=== PATIENT | female | born 1990 | race Caucasian/White ===

== ENCOUNTER 2020-09-19 16:54 | Outpatient (RCR) | payer OTHER, SELFPAY ==
[2020-09-18 10:05] LABS: Hematocrit 33.9 % (37.0-47.0); Hemoglobin 11.2 g/dL (12.0-15.0)
[2020-09-18 10:23] LABS: Glucose 1 Hour PP 50gm Dose 120 mg/dL
[2020-09-18 11:05] LABS: HIV 1/2 Ab P24 Ag Result Negative (Negative)
[2020-09-18 11:20] LABS: Free T4 Free Thyroxine 1.07 ng/mL (0.78-2.19)
[2020-09-19] MEDS: RHO(D) IMMUNE GLOBULIN 300 MCG/2 ML SYRINGE IM (07:40)
== END 2020-09-19 16:55 | disposition home or self-care (01) ==
LOC: ANHLAB 16:54
PROVIDERS: PCP Internal Medicine; Visit Provider Obstetrics & Gynecology Gynecology
DX: Z29.13 Encounter for prophylactic Rho(D) immune globulin (principal); Z11.4 Encounter for screening for human immunodeficiency virus [HIV]; O36.0190 Maternal care for anti-D [Rh] antibodies, unspecified trimester, not applicable or unspecified; Z3A.00 Weeks of gestation of pregnancy not specified
CPT/HCPCS: 36415; 82306; 82947; 84439; 84443; 85014; 85018; 85461; 86703; 90384; 96372; G0432; J2790

== ENCOUNTER 2020-11-20 15:32 | Outpatient (RCR) | payer OTHER, SELFPAY ==
[2020-11-03 18:20] VITALS: BP 120/80
[2020-11-13 09:01] VITALS: BP 104/49; PULSE 89
[2020-11-17 09:34] VITALS: BP 100/71; PULSE 105
--- NOTE | ~2020-11-20 | US_ITS ---
EXAMINATION: US OB limited w BPP DATE: 11/03/2020 18:16 INDICATION: Decreased movement during third trimester TECHNIQUE: Real-time pelvic ultrasound was performed. The interpreting radiologist was not present fo r the study. COMPARISON: None. FINDINGS: There is a single living fetus in vertex presentation. The placenta is anterior. heart rate is 141 beats per minute (bpm). The amniotic fluid index is 18 cm which is normal Biophysical profile performed by the technologist: breathing (30 sec sustained breathing in 30 minutes): 2 out of 2 movement (3 gross body movements in 30 minutes): 2 out of 2 tone (one episode of tqrnnns-acvzbdrlr-voehruz limb movement): 2 out of 2 Amniotic fluid pocket (2 cm): 2 out of 2 Total score: 8 out of 8 IMPRESSION: 1. Single living fetus in vertex presentation. 2. Biophysical profile 8 out of 8. Reviewed, dictated and finalized at location A.
[2020-11-20 16:37] VITALS: BP 118/67; PULSE 95
== END 2020-12-07 08:13 | disposition home or self-care (01) ==
LOC: ANHOBOP 15:32
PROVIDERS: PCP Internal Medicine; Visit Provider Obstetrics & Gynecology Gynecology
DX: O36.8130 Decreased fetal movements, third trimester, not applicable or unspecified (principal); Z3A.34 34 weeks gestation of pregnancy; Z3A.35 35 weeks gestation of pregnancy; Z3A.36 36 weeks gestation of pregnancy; Z3A.37 37 weeks gestation of pregnancy
CPT/HCPCS: 59025; 76815; 76819

== ENCOUNTER 2020-11-29 08:25 | Outpatient (CLI) | payer OTHER, SELFPAY ==
--- NOTE | 2020-11-29 09:10 | PC.NURSE ---
Called Dr. Nelson with pt status. ROM plus negative, reactive tracing, and no contractions seen or felt per pt. October D/C home.
== END 2020-11-29 09:17 | disposition home or self-care (01) ==
LOC: ANHOBOP 09:14 → ANHLDR 09:15
PROVIDERS: PCP Internal Medicine; Visit Provider Obstetrics & Gynecology Gynecology
DX: O42.90 Premature rupture of membranes, unspecified as to length of time between rupture and onset of labor, unspecified weeks of gestation (principal); Z3A.00 Weeks of gestation of pregnancy not specified
CPT/HCPCS: 59025; 84112; 99199

== ENCOUNTER 2020-12-02 16:37 | Inpatient (IN) | payer OTHER, SELFPAY ==
[2020-12-02] VITALS (14 sets, daily range): BP systolic 113–131; BP diastolic 64–81; PULSE 82–101; RESP 16–18; TEMP 36.2–36.5; BMI 41.3
[2020-12-02 17:09] LABS: Basophils Percent Auto 0.2 % (0.2-1.2); Eosinophils Absolute Auto 0.8 K/mm3 (0-0.3); Eosinophils Percent Auto 7.6 % (0-4.4); Hematocrit 33.5 % (37.0-47.0); Hemoglobin 10.8 g/dL (12.0-15.0); Immature Granulocyte Absolute 0.04 K/mm3 (0.00-0.031); Immature Granulocyte Percent A 0.4 % (0-0.5); Lymphocytes Absolute Auto 2.11 K/mm3 (0.9-3.2); Lymphocytes Percent Auto 20.6 % (18.3-44.2); Mean Corpuscular HGB Conc 32.2 g/dl (32-36); Mean Corpuscular Hemoglobin 28.8 pg (26-34); Mean Corpuscular Volume 89.3 fl (80-100); Mean Platelet Volume 11.6 fl (7.4-10.4); Monocytes Absolute Auto 0.6 K/mm3 (0.1-0.6); Monocytes Percent Auto 5.5 % (2.6-8.5); Neutrophils Absolute Auto 6.7 K/mm3 (1.3-6.7); Neutrophils Percent Auto 65.7 % (45.5-73.1); Platelet Count Result 178 k/mm3 (150-375); Red Blood Count 3.75 M/mm3 (4.2-5.4); Red Cell Distribution Width 14.8 % (11.5-14.5); White Blood Count 10.2 K/mm3 (4.5-10.0)
[2020-12-02] MEDS: DINOPROSTONE 10 MG VAG INSERT VAGINAL (17:20)
--- NOTE | 2020-12-02 17:28 | LDADM ---
This patient, Vangie Vera, was admitted to Labor/Delivery/Recovery 107 on 12/02/20 at 16:37. Plans for labor, pain management and were discussed with patient. Patient/family oriented to hospital policies and general routines including ID bracelet, bed and alarms, visiting hours, pain management, procedures, bathroom and other care routines, personal items, smoking policy, room service/diet and guest tray routines, security routines, and visiting hours. Patient/Family are encouraged to report perceived risks to care and to ask questions if they do not understand what they are told or what they should do. See OBIX for further documentation.
[2020-12-03] VITALS (249 sets, daily range): BP systolic 74–138; BP diastolic 43–104; PULSE 62–214; RESP 16; TEMP 36–37.1; O2SAT 81–100
[2020-12-03] MEDS: LEVOTHYROXINE SODIUM 88 MCG TABLET PO (06:21)
[2020-12-03] MEDS: OXYTOCIN 30 UNITS/NS 500 ML 30 UNITS/500 ML BAG 6 UNITS IV CONT (06:41)
[2020-12-03] MEDS: LACTATED RINGERS 1,000 ML 125 ML IV CONT ×4 (06:41→20:27)
[2020-12-03 06:49] LABS: Rapid Plasma Reagin Non-Reactive (NonReactive)
--- NOTE | 2020-12-03 07:28 | WPDOBADMIT ---
Obstetrics - Admit Note Admission Note: record reviewed. No pertinent additions to the history and/or any subsequent changes in the physical findings that are not consistent with the expected course of the were found. Additions to the history and/or subsequent changes in the physical findings follow. Here for MIL. Cervadil last pm. Now 3 AROM with clear fluid. FHTS reactive. Continue with Pitocin
[2020-12-03] MEDS: fentaNYL CITRATE INJ (*CRX) 100 MCG/2 ML VIAL 50 MCG IV PUSH (08:18)
[2020-12-03] MEDS: fentaNYL CITRATE INJ (*CRX) 100 MCG/2 ML VIAL IV PUSH (09:38)
--- NOTE | 2020-12-03 10:17 | WPDANESEPP ---
Anes - Eval Pre Procedure Procedure: labor epidural Date/Time: 12/03/20 10:17 Surgeon: robert Pre Op Diagnosis: induction Patient Data Age: 30 Gender: F Height: 1.75 m Weight: 127.1 kg Last Vital Signs Temp 36.3 C L 12/03/20 08:00 Pulse 70 12/03/20 10:02 Resp 16 12/03/20 04:00 BP 108/70 12/03/20 10:02 Pulse Ox 98 12/03/20 10:14 Allergies Allergy/AdvReac Type Severity Reaction Status Date / Time No Known Allergies Allergy Verified 11/09/20 13:35 Home Medications Medication Instructions Recorded Confirmed Type ergocalciferol (vitamin D2) 1,250 mcg PO 2XW 11/09/20 12/02/20 History [Vitamin D2] levothyroxine 88 mcg PO DAILY 11/09/20 12/02/20 History mecobalamin (vitamin B12) 1,000 mcg PO DAILY 11/09/20 12/02/20 History prenat.vits,pedro,ynh-zlvb-olbsd 1 tablet PO DAILY 11/09/20 12/02/20 History [ #2] Laboratory Tests 12/02/20 12/02/20 12/02/20 17:02 17:02 17:02 WBC 10.2 K/mm3 H K/mm3 (4.5-10.0) RBC 3.75 M/mm3 L M/mm3 (4.2-5.4) Hgb 10.8 g/dL L g/dL (12.0-15.0) Hct 33.5 % L % (37.0-47.0) MCV 89.3 fl fl (80-100) MCH 28.8 pg pg (26-34) MCHC 32.2 g/dl g/dl (32-36) RDW 14.8 % H % (11.5-14.5) Plt Count 178 k/mm3 k/mm3 (150-375) MPV 11.6 fl H fl (7.4-10.4) Immature Gran % (Auto) 0.4 % % (0-0.5) Neut % (Auto) 65.7 % % (45.5-73.1) Lymph % (Auto) 20.6 % % (18.3-44.2) [place] % (Auto) 5.5 % % (2.6-8.5) Eos % (Auto) 7.6 % H % (0-4.4) Baso % (Auto) 0.2 % % (0.2-1.2) Lymph # (Auto) 2.11 K/mm3 K/mm3 (0.9-3.2) [place] # (Auto) 0.6 K/mm3 K/mm3 (0.1-0.6) Eos # (Auto) 0.8 K/mm3 H K/mm3 (0-0.3) Baso # (Auto) 0.0 K/mm3 K/mm3 (0.0-0.1) Abs Immat Gran (auto) 0.04 K/mm3 H K/mm3 (0.00-0.031) Absolute Neuts (auto) 6.7 K/mm3 K/mm3 (1.3-6.7) Absolute Nucleated RBC 0.0 K/mm3 K/mm3 (0.0-0.012) Nucleated RBC % 0.0 % % (0.0-0.2) RPR Non-reactive (NonReactive) Blood Type A Negative Antibody Screen Negative Patient hx anesthesia problems: none Family hx anesthesia problems: none PMFSH Family History Family History Mother Ovarian cancer S/P KALE (total abdominal hysterectomy) Father Hypertension Social History Social History Smoking status: Never smoker Second hand tobacco smoke exposure: No Substance use: never Spiritual care concerns: No Exam Day of Procedure 12/03/20 10:17
[2020-12-03] MEDS: ONDANSETRON INJ 4 MG/2 ML VIAL IV PUSH ×2 (12:27→22:51)
[2020-12-04] VITALS (178 sets, daily range): BP systolic 60–141; BP diastolic 29–118; PULSE 70–257; RESP 16–18; TEMP 36.1–37.2; O2SAT 96–100
[2020-12-04] MEDS: AMPICILLIN 2 GM/NS 100 ML 2 GM/100 ML BAG IVPB (01:40)
[2020-12-04] MEDS: AMPICILLIN 1 GM/NS 50 ML 1 GM/50 ML BAG IVPB (05:25)
--- NOTE | 2020-12-04 08:46 | P.OP_ITS ---
Procedure Note - Detailed Date of Procedure 12/04/20 Pre-op Diagnosis IUP 39 wks MIL Failure to progress Post-op Diagnosis same Procedure Performed primary low-transverse section Surgeon Ann Nelson MD Anesthesia epidural Findings female infant in the left occiput posterior position with a cord around the body and both legs weighing 7 lb 9 oz with Apgars of 8 [id number] 9 at 5; normal-appearing tubes ovaries and uterus Description of Procedure the patient was taken to the operating room and placed under anesthesia in the dorsal supine position with a leftward tilt. Once anesthesia was deemed adequate she was prepped and draped in the usual sterile fashion. Pfannenstiel skin incision was made need and carried down to the underlying layer of fascia. Fascia was nicked to the midline and extended laterally using Salazar scissors. Bleeding vessels in the subcutaneous tissue were cauterized with Bovie for hemostasis. The fascial incision was grasped anteriorly and dissected off using sharp and blunt dissection. The fascial incision was grasped posteriorly and dissected off using sharp and blunt dissection. The rectus muscles are in the midline and the peritoneum was tented with a Peon. The peritoneum was entered with Metzenbaum was. The incision is extended with blunt traction. The bladder blade is placed and the vesicouterine peritoneum grasped with a Peon. The incision was extended laterally and a bladder flap created digitally. The bladder blade is replaced. The lower uterine segment was incised in a transverse fashion with a scalpel. The incision is extended with blunt traction. The infant's head was brought up into the incision and delivered while the housing assistant property manager applied fundal pressure. The cord is detangled clamped and cut and the handed to the waiting OB nurse. the placenta is removed using manual traction. The Lenny 0 retractor is placed. The lower uterine segment is grasped with a ring forcep. The lower uterine segment was closed using 0 Monocryl in a running locked fashion and the same suture was used imbricate. Good hemostasis is noted. The gutters are irrigated the tubes and ovaries are inspected. The incision was again inspected and noted to be hemostatic. The Lenny O retractor was removed and the fascia closed using 0 Vicryl in a running fashion. Subcutaneous tissues are irrigated and made hemostatic using Bovie cautery. Skin incision was closed using 4 0 Vicryl in a subcuticular fashion. Sponge, needle, and instrument counts are correct per the OR staff. Patient received Ancef prior to skin incision. Estimated Blood Loss 750 Drains Yes (malhotra) Packing No Pathology none sent Complications No immediate complications Condition stable Disposition floor
--- NOTE | 2020-12-04 08:52 | PM.OBDSVD ---
DS: Admitting Diagnosis Admitting Diagnosis Admitting Diagnosis: Intrauterine at 39 weeks Medical induction of labor Failure to progress DS: Discharge Diagnosis Discharge Diagnosis (1) 39 weeks gestation of : Code(s): Z3A.39 - 39 weeks gestation of Status: Acute (2) Failure to progress in labor: Code(s): O62.2 - Other uterine inertia Status: Acute (3) delivery delivered: Code(s): O82 - Encounter for delivery without indication Status: Acute OB - DS: Summary OB Procedures : Ultrasound OB Procedures Intrapartum: low cervical, transverse OB Procedures: : None Peripartum Data Infant Delivery Method: Section complications: none Status at Discharge Functional status at discharge: independent ambulation Overall status at discharge: patient is progressing back to baseline Time Spent with Patient Time attestation: Total time spent providing and/or coordinating discharge services: Discharge Plan Discharge Attending physician on discharge: Ann Nelson Discharging Clinician: Ann Nelson Anticipated Discharge Date/Time: 12/07/20 08:53 Patient Disposition: Home, Self-Care Activity: may shower, may drive after 2 weeks and pelvic rest Diet: regular Wound Care Instructions: incision open to air Patient Instructions: Antibiotic Form Stand Alone Forms: General Discharge Information Follow-up/Referrals: Ann Nelson MD [Physician] - 1 Week (and 6 wk) Discharge Medications: New hydrocodone-acetaminophen 5-325 mg Tablet 1 tablet PO Q3H PRN (Reason: Moderate Pain (4-6)) Qty: 20 RF: 0 norethindrone (contraceptive) 0.35 mg tablet 0.35 mg PO DAILY Qty: 84 RF: 3 Continued levothyroxine 88 mcg Tablet 88 mcg PO DAILY RF: 0 ergocalciferol (vitamin D2) [Vitamin D2] 1,250 mcg (50,000 unit) Capsule 1,250 mcg PO 2XW RF: 0 #2 Tablet 1 tablet PO DAILY RF: 0 mecobalamin (vitamin B12) 1,000 mcg Tablet,Chewable 1,000 mcg PO DAILY RF: 0 Date of admission: 12/02/20 16:37 Primary Care Provider: RosannaRafael Admitting Provider: Ann Nelson Attending physician on admission: Ann Nelson Condition: Stable
[2020-12-04] MEDS: PHENYLEPHRINE 1,000 MCG/10 ML SYRINGE 100 MCG IV PUSH ×2 (08:57→09:07)
--- NOTE | 2020-12-04 08:57 | PM.IMHP ---
H&P: HPI History of Present Illness Date/Time: 12/04/20 08:57 Chief Complaint: failure to progress Narrative: the patient is a 30-year-old 1 at 39 weeks admitted for medical induction of labor. The patient had slow progress to 6.5cm and then had no further change in her cervix. Pelvic exam revealed the infant to the -2 station and the caput increasing suspect occiput posterior positioning. The patient's has been uncomplicated to this time labs A negative rubella immune RPR negative hepatitis-B surface antigen negative HIV negative group B strep negative. It is recommended to proceed with primary and the patient voices understanding and agrees to proceed. PMFSH Past Medical History Medical History (Updated 12/04/20 @ 08:59 by Ann Nelson MD) B12 deficiency Hypothyroid Surgical History Surgical History (Updated 12/04/20 @ 08:59 by Ann Nelson MD) H/O myringoplasty Family History Family History Mother Ovarian cancer S/P KALE (total abdominal hysterectomy) Father Hypertension Social History Social History Smoking status: Never smoker Second hand tobacco smoke exposure: No Substance use: never Spiritual care concerns: No Meds Home Medications and Allergies Home Medications Medication Instructions Recorded Confirmed Type ergocalciferol (vitamin D2) 1,250 mcg PO 2XW 11/09/20 12/02/20 History [Vitamin D2] levothyroxine 88 mcg PO DAILY 11/09/20 12/02/20 History mecobalamin (vitamin B12) 1,000 mcg PO DAILY 11/09/20 12/02/20 History prenat.vits,pedro,dzf-qjre-qnama 1 tablet PO DAILY 11/09/20 12/02/20 History [ #2] Allergies Allergy/AdvReac Type Severity Reaction Status Date / Time No Known Allergies Allergy Verified 11/09/20 13:35 Vital Signs Vital Signs - 24 hr 12/03/20 09:01 12/03/20 09:44 12/03/20 09:49 Temperature Pulse Rate 70 Respiratory Rate Blood Pressure 130/84 Pulse Oximetry 98 100 12/03/20 09:54 12/03/20 09:59 12/03/20 10:00 Temperature 97.1 F L Pulse Rate Respiratory Rate Blood Pressure Pulse Oximetry 99 98 12/03/20 10:02 12/03/20 10:04 12/03/20 10:09 Temperature Pulse Rate 70 Respiratory Rate Blood Pressure 108/70 Pulse Oximetry 98 98 12/03/20 10:14 12/03/20 10:19 12/03/20 10:24 Temperature Pulse Rate Respiratory Rate Blood Pressure Pulse Oximetry 98 99 100 12/03/20 10:29 12/03/20 10:32 12/03/20 10:34 Temperature Pulse Rate 63 Respiratory Rate Blood Pressure 124/71 Pulse Oximetry 100 100 12/03/20 10:39 12/03/20 10:44 12/03/20 10:49 Temperature Pulse Rate Respiratory Rate Blood Pressure Pulse Oximetry 100 100 100 12/03/20 10:54 12/03/20 10:59 12/03/20 11:02 Temperature Pulse Rate 69 Respiratory Rate Blood Pressure 104/58 L Pulse Oximetry 100 100 12/03/20 11:05 12/03/20 11:07 12/03/20 11:10 Temperature Pulse Rate 91 Respiratory Rate Blood Pressure 122/89 Pulse Oximetry 100 100 12/03/20 11:15 12/03/20 11:20 12/03/20 11:21 Temperature Pulse Rate 86 Respiratory Rate Blood Pressure 118/55 L Pulse Oximetry 100 100 12/03/20 11:23 12/03/20 11:25 12/03/20 11:27 Temperature Pulse Rate 85 78 73 Respiratory Rate Blood Pressure 115/74 121/68 112/59 L Pulse Oximetry 100 12/03/20 11:29 12/03/20 11:30 12/03/20 11:31 Temperature Pulse Rate 79 75 Respiratory Rate Blood Pressure 117/63 122/74 Pulse Oximetry 100 12/03/20 11:34 12/03/20 11:35 12/03/20 11:37 Temperature Pulse Rate 77 69 Respiratory Rate Blood Pressure 127/79 115/68 Pulse Oximetry 100 12/03/20 11:39 12/03/20 11:40 12/03/20 11:41 Temperature Pulse Rate 65 80 Respiratory Rate Blood Pressure 120/70 125/76 Pulse Oximetry 100 12/03/20 11:44 12/03/20 11:46 12/03/20
[2020-12-04] MEDS: LEVOTHYROXINE SODIUM 88 MCG TABLET PO (09:12)
[2020-12-04] MEDS: OXYTOCIN 30 UNITS/NS 500 ML 30 UNITS/500 ML BAG 125 UNITS IV CONT (09:47)
[2020-12-04] MEDS: DEXTROSE 5%/0.45% SOD CHL 1,000 ML 125 ML IV CONT (14:10)
--- NOTE | 2020-12-04 14:23 | PC.NURSE ---
Patient transferred to post room #277 via stretcher. Support person present. Oriented to unit, room, information board, rooming in, admission packet and security measures. Patient verbalizes understanding.
[2020-12-04] MEDS: KETOROLAC 30 MG/ML VIAL (*BKC) IV PUSH (19:37)
[2020-12-04] MEDS: HYDROcodone/acetaminophen (*CRX) 10-325 MG TABLET 1 TAB PO (19:38)
[2020-12-05] VITALS: BP 120/60; PULSE 72; RESP 16; TEMP 36.7; O2SAT 99
[2020-12-05] MEDS: IBUPROFEN 600 MG TABLET PO ×3 (03:33→17:07)
[2020-12-05] MEDS: HYDROcodone/acetaminophen (*CRX) 5-325 MG TABLET 1 TAB PO ×4 (03:33→22:17)
[2020-12-05 05:03] VITALS: BP 125/67; PULSE 84; RESP 18; TEMP 36.1; O2SAT 100
[2020-12-05 05:20] LABS: Basophils Percent Auto 0.2 % (0.2-1.2); Eosinophils Absolute Auto 0.6 K/mm3 (0-0.3); Eosinophils Percent Auto 4.3 % (0-4.4); Hematocrit 26.8 % (37.0-47.0); Hemoglobin 8.4 g/dL (12.0-15.0); Immature Granulocyte Absolute 0.07 K/mm3 (0.00-0.031); Immature Granulocyte Percent A 0.5 % (0-0.5); Lymphocytes Absolute Auto 2.23 K/mm3 (0.9-3.2); Lymphocytes Percent Auto 16.5 % (18.3-44.2); Mean Corpuscular HGB Conc 31.3 g/dl (32-36); Mean Corpuscular Hemoglobin 28.8 pg (26-34); Mean Corpuscular Volume 91.8 fl (80-100); Mean Platelet Volume 12.4 fl (7.4-10.4); Monocytes Absolute Auto 0.9 K/mm3 (0.1-0.6); Monocytes Percent Auto 6.8 % (2.6-8.5); Neutrophils Absolute Auto 9.7 K/mm3 (1.3-6.7); Neutrophils Percent Auto 71.7 % (45.5-73.1); Platelet Count Result 134 k/mm3 (150-375); Red Blood Count 2.92 M/mm3 (4.2-5.4); White Blood Count 13.6 K/mm3 (4.5-10.0)
[2020-12-05] MEDS: LEVOTHYROXINE SODIUM 88 MCG TABLET PO (07:20)
[2020-12-05 08:00] VITALS: BP 104/68; PULSE 73; RESP 20; TEMP 36.8; O2SAT 96
[2020-12-05] MEDS: POLYSACCHARIDE IRON COMPLEX 150 MG CAPSULE PO ×2 (08:36→17:06)
[2020-12-05] MEDS: DOCUSATE SODIUM 100 MG CAPSULE PO ×2 (08:36→17:06)
[2020-12-05] MEDS: ERGOCALCIFEROL 50,000 UNIT CAPSULE 50000 UNITS PO (08:36)
[2020-12-05] MEDS: MULTIVIT/MIN/PREN/FOL AC/IRON TABLET 1 TAB PO (08:37)
--- NOTE | 2020-12-05 10:46 | P.PNOB_ITS ---
OB - PN: Subj Subjective Date/time seen: 12/05/20 10:46 Patient comments: no complaints and pain well controlled baby status: doing well OB - PN: Obj Data Labs CBC & Chem 7: 12/05/20 03:32 Labs: Laboratory Results - last 24 hr 12/05/20 03:32 WBC 13.6 H RBC 2.92 L Hgb 8.4 L Hct 26.8 L MCV 91.8 MCH 28.8 MCHC 31.3 L RDW 15.0 H Plt Count 134 L MPV 12.4 H Immature Gran % (Auto) 0.5 Neut % (Auto) 71.7 Lymph % (Auto) 16.5 L [place] % (Auto) 6.8 Eos % (Auto) 4.3 Baso % (Auto) 0.2 Lymph # (Auto) 2.23 [place] # (Auto) 0.9 H Eos # (Auto) 0.6 H Baso # (Auto) 0.0 Abs Immat Gran (auto) 0.07 H Absolute Neuts (auto) 9.7 H Absolute Nucleated RBC 0.0 Nucleated RBC % 0.0 OB - PN A/P Plan day: 1 Plan: routine care Time Spent With Patient Time: Total time spent is greater than 50% in coordination of care (as documented) at patient's floor/unit and/or counseling patient: Exam Narrative: Exam Narrative: inc c/d/i : Bimanual exam- vagina & uterus: other (Uterus firm, nt @U)
--- NOTE | 2020-12-05 13:24 | WPDANLDPN2 ---
Anes-Prog Note L&D Date/Time: 12/05/20 13:24 Comfortable throughout: section Neuraxial method: epidural Epidural/Spinal procedure site: clean & non-tender Neuro status: Neuro function grossly intact. Cardiovascular status: normal Respiratory status: normal Airway patency: baseline Mental status: baseline Post-Op hydration status: normal Vital Signs: Last Vital Signs Temp 36.8 C 12/05/20 08:00 Pulse 73 12/05/20 08:00 Resp 20 12/05/20 08:00 BP 104/68 12/05/20 08:00 Pulse Ox 96 12/05/20 08:00 Pain score (VAS): 0 I/O: Intake & Output 12/04/20 12/05/20 12/05/20 23:59 07:59 15:59 Output Total 3600 Balance -3600 Post-procedural complaints: none Patient feedback: Patient satisfied with anesthetic care.
--- NOTE | 2020-12-05 13:24 | WPDANLDNPN2 ---
Anes-Prog Note L&D-Neuraxial Date/Time: 12/05/20 13:24 Neuraxial medications: epidural PF morphine Opiod-related complaints: none Patient feedback: Patient satisfied with post-operative pain management.
[2020-12-05 19:11] VITALS: BP 109/71; PULSE 79; RESP 18; TEMP 36.6; O2SAT 98
[2020-12-06] MEDS: IBUPROFEN 600 MG TABLET PO ×3 (05:26→23:03)
[2020-12-06] MEDS: HYDROcodone/acetaminophen (*CRX) 5-325 MG TABLET 1 TAB PO ×3 (05:26→23:03)
[2020-12-06 07:30] VITALS: BP 120/69; PULSE 78; RESP 22; TEMP 37; O2SAT 100
[2020-12-06 08:00] VITALS: BP 129/87; PULSE 72; RESP 18; TEMP 36.1
--- NOTE | 2020-12-06 09:37 | PM.OBPNVD ---
OB - PN: Subj Subjective Date/time seen: 12/06/20 09:37 Patient comments: no complaints and pain well controlled baby status: doing well OB - PN: Obj Data Labs CBC & Chem 7: 12/05/20 03:32 OB - PN A/P Plan day: 2 Plan: routine care Time Spent With Patient Time: Total time spent is greater than 50% in coordination of care (as documented) at patient's floor/unit and/or counseling patient: Exam Narrative: Exam Narrative: inc c/d/i : Bimanual exam- vagina & uterus: other (Uterus firm, nt @U)
[2020-12-06] MEDS: MULTIVIT/MIN/PREN/FOL AC/IRON TABLET 1 TAB PO (16:12)
[2020-12-06] MEDS: DOCUSATE SODIUM 100 MG CAPSULE PO (16:13)
[2020-12-06] MEDS: POLYSACCHARIDE IRON COMPLEX 150 MG CAPSULE PO (16:13)
[2020-12-06] MEDS: SIMETHICONE 80 MG TAB.CHEW PO (16:13)
[2020-12-06 16:32] VITALS: BP 114/71; PULSE 78; RESP 18; TEMP 37; O2SAT 100
[2020-12-06 19:07] VITALS: BP 137/65; PULSE 78; RESP 20; TEMP 36.8
[2020-12-07] MEDS: HYDROcodone/acetaminophen (*CRX) 5-325 MG TABLET 1 TAB PO (05:40)
[2020-12-07] MEDS: IBUPROFEN 600 MG TABLET PO (05:40)
--- NOTE | 2020-12-07 07:48 | PM.OBPNVD ---
OB - PN: Subj Subjective Date/time seen: 12/07/20 07:48 Patient comments: no complaints and pain well controlled baby status: doing well OB - PN: Obj Data Labs CBC & Chem 7: 12/05/20 03:32 OB - PN A/P Plan day: 3 Plan: routine care, discharge home and other (plans micronor) Time Spent With Patient Time: Total time spent is greater than 50% in coordination of care (as documented) at patient's floor/unit and/or counseling patient: Exam Narrative: Exam Narrative: inc c/d/i : Bimanual exam- vagina & uterus: other (Uterus firm, nt @U)
[2020-12-07] MEDS: SIMETHICONE 80 MG TAB.CHEW PO (07:53)
[2020-12-07] MEDS: DOCUSATE SODIUM 100 MG CAPSULE PO (07:53)
[2020-12-07] MEDS: POLYSACCHARIDE IRON COMPLEX 150 MG CAPSULE PO (07:54)
[2020-12-07] MEDS: LEVOTHYROXINE SODIUM 88 MCG TABLET PO (07:54)
[2020-12-07] MEDS: MULTIVIT/MIN/PREN/FOL AC/IRON TABLET 1 TAB PO (07:54)
--- NOTE | 2020-12-07 08:19 | PC.NURSE ---
Patient viewed the discharge video Mother & Baby Care, The First Two Weeks . Patient was given the opportunity and encouraged to ask questions. Patient verbalized understanding of information shared and has been given the mother/baby guide for home reference.
--- NOTE | 2020-12-07 08:19 | PC.NURSE ---
SElf care and infant care discharge instructions given including follow up visit date and time. Very pleasant and cooperative. No questions or concerns verbalized. FOB at side.
--- NOTE | 2020-12-07 09:45 | PC.NURSE ---
Addendum entered by Norma Sexton RN 12/07/20 15:26: 0845 Original Note: Consult with pt., mother reports she is putting to breast each feeding. Mother will initiate each feeding using using nipple shield and will make attempts to remove shield and complete feeding without, she then supplements EBM/formula and will then pump. Mother states she is now pumping 10-15 mls per session. Mother states shield was used due to flat nipples and infant was unable to latch and draw nipple in deeply. Reviewed application and cleaning of shield. Discussed nipple shield precautions and possible complications. Discussed the need for regular pumping until milk supply is fully established and infant is gaining weight. Patient verbalizes understanding. Reviewed weaning techniques of nipple shield. Mother is pumping without difficulties or discomfort and has a double electric spectra pump for home use. Discussed increasing supplementation as infant desires, with increased supplementation infant may go for 4 hours between feedings if having required output. If is exclusively infant should fed on demand or every three hours to satisfaction. Discussed signs when infant may be ready to decrease/ discontinue supplementation, suggested mother see ICP or LC for pre/post weight feeding evaluation before supplement is discontinued. Mother is able to independently latch with appropriate positioning/alignment. She denies any nipple discomfort, is feeding as required and waking infant to feed if needed. Infant is currently meeting outcomes for weight, output, jaundice and feeding frequencies. Mother states she feels confident to continue current feeding plan at home. Reviewed transition to breast milk, signs of adequate intake, and engorgement/relief. Instructed to call ICP if intake/output less than required. Reviewed regular medications mother is taking. Information provided per María Elena. Reviewed community resources on the [facility] website and in the Mom/Baby guide. Information on outpatient services provided. Mother has no further questions at this time.
[2020-12-09 07:56] VITALS: BP 109/69; PULSE 79; RESP 16; TEMP 37.1; O2SAT 99
== END 2020-12-07 10:50 | disposition home or self-care (01) | DRG 787 ==
LOC: ANHLDR 12-04 09:02 → ANHOB2 12-04 11:16
PROVIDERS: Admitting Provider Obstetrics & Gynecology Gynecology; PCP Internal Medicine; Visit Provider Obstetrics & Gynecology Gynecology
PROC: 10D00Z1 Extraction of Products of Conception, Low, Open Approach (ICD-10-PCS; CPT 59514; principal; 2020-12-04 08:15)
DX: O62.2 Other uterine inertia (principal); O41.03X0 Oligohydramnios, third trimester, not applicable or unspecified; O69.2XX0 Labor and delivery complicated by other cord entanglement, with compression, not applicable or unspecified; O99.284 Endocrine, nutritional and metabolic diseases complicating childbirth; E03.9 Hypothyroidism, unspecified; Z3A.39 39 weeks gestation of pregnancy; Z37.0 Single live birth
CPT/HCPCS: 36415; 59025; 84112; 85025; 86592; 86850; 86900; 86901; 99199; A9270; J0131; J0290; J1885; J2274; J2370; J2405; J2590; J2795; J3010; J7120

== ENCOUNTER 2022-02-17 10:42 | Emergency (ER) | payer OTHER, SELFPAY ==
--- NOTE | 2022-02-17 10:47 | ED.NECK ---
HPI - Neck Pain/Injury General Chief Complaint: Neck Pain/Injury Stated Complaint: HEAD AND NECK PAIN Time Seen by Provider: 02/17/22 10:42 Source: patient Mode of arrival: ambulatory Limitations: no limitations History of Present Illness HPI Narrative: Ms. Luis is a 31-year-old female patient presenting to the clinic today with complaints of neck pain/posterior occipital head pain. She reports symptoms began yesterday when she woke up. She denies known injury. Pain is nonradiating. Rates pain 4 out of 10-states that it is tender when touched and aches. She denies any headache, fever, or dizziness. Related Data Home Medications Medication Instructions Recorded Confirmed levothyroxine 88 mcg tablet 88 mcg PO DAILY 11/09/20 02/17/22 mecobalamin (vitamin B12) 1,000 1,000 mcg PO DAILY 11/09/20 02/17/22 mcg chewable tablet Allergies Allergy/AdvReac Type Severity Reaction Status Date / Time No Known Allergies Allergy Verified 02/17/22 10:51 Review of Systems Review of Systems: Pertinent positives per HPI. Patient denies any fever, chills, rash, visual changes, dizziness, cough, runny nose, sore throat, shortness of breath, chest pain, palpitations, nausea, vomiting, diarrhea, constipation, abdominal pain, or any urinary issues. PMFSH Past Medical History Medical History B12 deficiency Hypothyroid Surgical History Surgical History H/O myringoplasty Family History Family History Mother Ovarian cancer S/P KALE (total abdominal hysterectomy) Father Hypertension Social History Social History Smoking status: Never smoker Second hand tobacco smoke exposure: No Substance use: never Spiritual care concerns: No Comments At the time of my signature, I reviewed and agree with the nursing past medical, surgical, social, and family history. There is no relevant family history pertinent to the patient complaint. Exam Narrative: General: Well-developed, well nourished, in no apparent distress Head: Normocephalic, atraumatic. Cardio: Regular rate and rhythm, s1 and s2 normal, no murmur appreciated. Resp: Clear to auscultation bilaterally, no rhonchi, rales, wheezing or rubs. Musculoskeletal: No deformity, tender to palpation over the right posterior occipital head/neck, grossly normal range of motion with mild discomfort, muscle strength strong and equal, peripheral pulse strong, no edema, no cyanosis, normal gait and station Course Course Emergency Course: Portions of this record may have been created with voice recognition software. Level of Care: Express Care Visit Vital Signs Vital signs: Vital signs reviewed MDM - Neck Pain/Injury MDM Narrative Medical decision making narrative: At the time of visit patient was resting comfortably on the exam table. Discharge Plan Discharge Clinical Impression: Cervical muscle strain Patient Disposition: Home, Self-Care Condition: Stable Instructions: Antibiotic Form, Cervical Sprain (ED) Additional Instructions: Take naproxen and cyclobenzaprine as prescribed. Cyclobenzaprine sedation precautions reviewed with patient May apply ice pack or heating pad to the affected area May apply blue emu, lidocaine, or Aspercreme to the affected area- do not apply cream and immediately apply heat or ice as this can cause a burn Follow up with your PCP in 1 week if symptoms persist or sooner if they worsen. Go to the Emergency Room if you develop weakness in your extremities, worsening of pain, headache, or fever. Prescriptions: New cyclobenzaprine 10 mg tablet 10 mg PO Q8H PRN (Reason: muscle spasm) 7 Days Qty: 21 0RF naproxen 500 mg tablet 500 mg PO BID 7 Days Qty: 14 0RF
[2022-02-17 10:51] VITALS: BP 125/88; PULSE 76; RESP 18; TEMP 37.2; O2SAT 99
[2022-02-17 10:52] VITALS: BP 125/88; PULSE 76; RESP 18; TEMP 37.2; O2SAT 99
== END 2022-02-17 11:20 | disposition home or self-care (01) ==
PROVIDERS: Emergency Provider Nurse Practitioner Family; PCP Internal Medicine
DX: S16.1XXA Strain of muscle, fascia and tendon at neck level, initial encounter (principal); X58.XXXA Exposure to other specified factors, initial encounter; E03.9 Hypothyroidism, unspecified; E53.8 Deficiency of other specified B group vitamins
CPT/HCPCS: 99213; G0463

== ENCOUNTER 2023-01-12 09:37 | Outpatient (CLI) | payer OTHER, SELFPAY ==
--- NOTE | ~2023-01-12 | US_ITS ---
US OB <=14 wk fetus w TV DATE: 01/12/2023 11:23 INDICATION: First trimester vaginal spotting TECHNIQUE: Real-time imaging and Doppler analysis COMPARISON: None FINDINGS: The uterus measures approximately 15.6 cm height, 5.7 cm AP and 9.5 cm transverse dimension . Dichorionic diamniotic twin intrauterine gestation is demonstrated. Right ovary 1.6 x 1.2 x 1.78 cm, with vascular flow. Left ovary 4.5 x 3.8 x 3.3 cm with vascular flow demonstrated. There is an approximately 3 x 3.7 cm l eft ovarian cyst. No abnormal free fluid is noted. Twin a is situated on the right, with heart rate of 1 65 bpm Morales-Sanchez-rump length of 1.51 cm, consistent with estimated gestational age of 7 weeks 6 days +/- 5 days and MONIQUE of 08/25/2023, compared to 08/24/2023 by LMP. Twin B situated on the left, with heart rate of 157 bpm crown-rump length of 1.83 cm, consisten t with 8 weeks 2 days +/- 5 days estimated gestational age and MONIQUE of 08/22/2023. No subchorionic hematoma is evident. IMPRESSION: Live dichorionic diamniotic intrauterine gestation 3.7 x 3 cm left ovarian cyst Reviewed, dictated and finalized at [facility]. Reviewed, dictated and finalized at location [facility].
== END 2023-01-12 09:38 | disposition home or self-care (01) ==
PROVIDERS: PCP Internal Medicine; Visit Provider Obstetrics & Gynecology Gynecology
DX: O26.851 Spotting complicating pregnancy, first trimester (principal); O30.041 Twin pregnancy, dichorionic/diamniotic, first trimester; Z3A.00 Weeks of gestation of pregnancy not specified; N83.202 Unspecified ovarian cyst, left side
CPT/HCPCS: 36415; 76801; 76817; 85461; 86850; 86900; 86901

== ENCOUNTER 2023-01-14 13:50 | Outpatient (RCR) | payer OTHER, SELFPAY ==
[2023-01-14] MEDS: RHO(D) IMMUNE GLOBULIN 300 MCG/2 ML SYRINGE IM (09:00)
== END 2023-01-14 14:00 | disposition home or self-care (01) ==
LOC: ANHLAB 13:50
PROVIDERS: PCP Internal Medicine; Visit Provider Obstetrics & Gynecology Gynecology
DX: O36.0110 Maternal care for anti-D [Rh] antibodies, first trimester, not applicable or unspecified (principal); O26.851 Spotting complicating pregnancy, first trimester; Z3A.00 Weeks of gestation of pregnancy not specified
CPT/HCPCS: 36415; 85461; 86850; 86900; 86901; 90384; 96372; J2790

== ENCOUNTER 2023-05-31 20:33 | Observation (INO) | payer OTHER, SELFPAY ==
[2023-05-31 21:18] VITALS: BP 116/65; PULSE 79
[2023-05-31 21:31] VITALS: BP 112/59; PULSE 87
[2023-05-31 21:37] VITALS: BMI 44.1
--- NOTE | 2023-05-31 21:37 | OBADM ---
This patient, Vangie Luis, admitted to the OB room [facility] Post [facility] for observation. Patient/family oriented to hospital policies and general routines including ID bracelet, bed and alarms, visiting hours, pain management, procedures, bathroom and other care routines, personal items, smoking policy, room service/diet, and visiting hours. Patient/Family are encouraged to report perceived risks to care and to ask questions if they do not understand what they are told or what they should do.
--- NOTE | 2023-05-31 21:44 | PC.NURSE ---
Patient fell tonight down one stair and fell on her hands and knees. Patient did not hit belly and is not experiencing any cramping or vaginal bleeding. Patient is feeling normal movement of babies.
--- NOTE | 2023-05-31 21:45 | PC.NURSE ---
Talked to Berlin Orellana CNM at 2134 reported on maternal and status and discharge orders recieved at this time.
--- NOTE | 2023-06-05 07:42 | PM.OBTRLD ---
OB - Triage/Final Diagnosis Visit Information Date of evaluation: 06/01/23 Comments/Additional reasons for admission: I have assessed the risk for this patient, Vangie Jose Luis, and determined that she would benefit from observation care.
--- NOTE | 2023-06-05 07:43 | PM.OBTRLD ---
OB - Triage/Final Diagnosis Visit Information Date of evaluation: 05/31/23 Reason for evaluation: other (s/p fall) Comments/Additional reasons for admission: I have assessed the risk for this patient, Vangie Luis, and determined that she would benefit from observation care. Evaluation Comments: Per RN, tracing reactive x2. No bleeding, ctx, loss of fluid or other complaints.
== END 2023-05-31 22:00 | disposition home or self-care (01) ==
PROVIDERS: Admitting Provider Obstetrics & Gynecology Gynecology; PCP Internal Medicine; Visit Provider Obstetrics & Gynecology Gynecology
DX: Z04.3 Encounter for examination and observation following other accident (principal)
CPT/HCPCS: 59025; G0378; G0379

== ENCOUNTER 2023-06-06 09:37 | Outpatient (RCR) | payer OTHER, SELFPAY ==
[2023-06-05 11:06] LABS: Hematocrit 34.8 % (37.0-47.0); Hemoglobin 10.8 g/dL (12.0-15.0)
[2023-06-05 11:26] LABS: Glucose 1 Hour PP 50gm Dose 92 mg/dL
[2023-06-05 11:56] LABS: Free T4 Free Thyroxine 1.24 ng/mL (0.78-2.19); Vitamin D 25 Hydroxy 59.5 ng/mL
[2023-06-05 12:08] LABS: HIV 1/2 Ab P24 Ag Result Negative (Negative)
[2023-06-06] MEDS: RHO(D) IMMUNE GLOBULIN 300 MCG/2 ML SYRINGE IM (09:44)
== END 2023-09-03 23:59 | disposition home or self-care (01) ==
LOC: ANHLAB 09:37
PROVIDERS: PCP Internal Medicine; Visit Provider Advanced Practice Midwife
DX: Z11.4 Encounter for screening for human immunodeficiency virus [HIV] (principal); Z29.13 Encounter for prophylactic Rho(D) immune globulin; O36.0190 Maternal care for anti-D [Rh] antibodies, unspecified trimester, not applicable or unspecified; E03.9 Hypothyroidism, unspecified; E55.9 Vitamin D deficiency, unspecified; Z67.91 Unspecified blood type, Rh negative; Z3A.00 Weeks of gestation of pregnancy not specified
CPT/HCPCS: 36415; 82306; 82947; 84439; 84443; 85014; 85018; 85461; 86703; 86850; 86900; 86901; 90384; 96372; G0432; J2790

== ENCOUNTER 2023-07-25 09:40 | Outpatient (CLI) | payer OTHER, SELFPAY ==
[2023-07-25] VITALS (7 sets, daily range): BP systolic 110–119; BP diastolic 55–75; PULSE 77–102; BMI 45.8
[2023-07-25 10:50] LABS: Basophils Percent Auto 0.2 % (0.2-1.2); Eosinophils Absolute Auto 0.1 K/mm3 (0-0.3); Eosinophils Percent Auto 0.6 % (0-4.4); Hematocrit 30.5 % (37.0-47.0); Hemoglobin 9.6 g/dL (12.0-15.0); Immature Granulocyte Absolute 0.04 K/mm3 (0.00-0.031); Immature Granulocyte Percent A 0.5 % (0-0.5); Lymphocytes Absolute Auto 1.65 K/mm3 (0.9-3.2); Lymphocytes Percent Auto 19.7 % (18.3-44.2); Mean Corpuscular HGB Conc 31.5 g/dl (32-36); Mean Corpuscular Hemoglobin 27.4 pg (26-34); Mean Corpuscular Volume 87.1 fl (80-100); Mean Platelet Volume 11.5 fl (7.4-10.4); Monocytes Absolute Auto 0.4 K/mm3 (0.1-0.6); Monocytes Percent Auto 4.4 % (2.6-8.5); Neutrophils Absolute Auto 6.2 K/mm3 (1.3-6.7); Neutrophils Percent Auto 74.6 % (45.5-73.1); Platelet Count Result 144 k/mm3 (150-375); White Blood Count 8.4 K/mm3 (4.5-10.0)
[2023-07-25 11:01] LABS: Alanine Aminotransferase 43 U/L (6-35); Albumin Level 2.7 g/dL (3.5-5.1); Alkaline Phosphatase 147 U/L (38-126); Anion Gap 5 mmol/L (8-16); Aspartate Amino Transferase 32 U/L (14-36); Bilirubin,Total 0.6 mg/dL (0.2-1.3); Blood Urea Nitrogen 8 mg/dL (7-17); Calcium 8.4 mg/dL (8.4-10.2); Carbon Dioxide 19 mmol/L (22-30); Chloride 111 mmol/L (98-107); Estimated CRCL calculation 174 ml/min; Estimated Glomerular Filt Rate > 60; Glucose 97 mg/dL (65-110); Potassium 3.8 mmol/L (3.4-5.0); Sodium 135 mmol/L (137-145); Uric Acid 6.6 mg/dL (2.5-7.5)
[2023-07-25 11:02] LABS: Creatinine Urine 268.5 mg/dL; Total Protein Urine Random 21 mg/dL; Ur Ttl Prot Creatinine Ratio 0.08 mg/mg (0-0.20)
[2023-07-25 11:10] LABS: Appearance Urine Cloudy (Clear); Bacteria Urine 2+ /hpf; Bilirubin Urine 1+ (Negative); Blood Urine Negative (Negative); Color Urine Dark Yellow (Yellow); Glucose Urine UA Negative (Negative); Ketones Urine Trace mg/dL (Negative); Leukocyte Esterase Ur Trace LEU/UL (Negative); Mucus Urine Present /lpf; Nitrate Urine Negative (Negative); Protein Urine 1+ mg/dL (Negative); RBC Urine 0-2 /hpf (0-2); Specific Grav Ur 1.029 (1.001-1.035); Squamous Epithelial Cell Urine Many /hpf (Few)
[2023-07-25 11:13] LABS: Add Urine Microscopic? YES
--- NOTE | 2023-07-25 11:15 | PC.NURSE ---
called Dr. Nelson reported PIH lab result and reactive NST. discharge order received with 24 hour urine collection. repeat Lab tomorrow.
== END 2023-07-25 11:24 | disposition home or self-care (01) ==
LOC: ANHOBOP 09:50 → ANHOBPP 09:50
PROVIDERS: PCP Internal Medicine; Visit Provider Obstetrics & Gynecology Gynecology
DX: O13.9 Gestational [pregnancy-induced] hypertension without significant proteinuria, unspecified trimester (principal); Z3A.00 Weeks of gestation of pregnancy not specified
CPT/HCPCS: 36415; 59025; 80053; 81001; 81050; 82570; 82575; 84156; 84550; 85025; 87086; 99199

== ENCOUNTER 2023-07-26 10:35 | Outpatient (CLI) | payer OTHER, SELFPAY ==
--- NOTE | 2023-07-26 10:50 | PC.NURSE ---
Pt here to drop off her 24 hr urine and order also wanted CBC, CMP, and uric acid repeated. No NST.
[2023-07-26 10:51] VITALS: BMI 45.8
[2023-07-26 11:17] VITALS: BP 119/70; PULSE 88
[2023-07-26 11:18] LABS: Collection Time Urine 24 HOURS
[2023-07-26 11:19] LABS: Basophils Percent Auto 0.1 % (0.2-1.2); Eosinophils Absolute Auto 0.1 K/mm3 (0-0.3); Eosinophils Percent Auto 0.7 % (0-4.4); Hematocrit 29.7 % (37.0-47.0); Hemoglobin 9.4 g/dL (12.0-15.0); Immature Granulocyte Absolute 0.02 K/mm3 (0.00-0.031); Immature Granulocyte Percent A 0.3 % (0-0.5); Immature Platelet Fraction Pct 10.1 % (0.9-11.2); Lymphocytes Absolute Auto 1.38 K/mm3 (0.9-3.2); Lymphocytes Percent Auto 20.1 % (18.3-44.2); Mean Corpuscular HGB Conc 31.6 g/dl (32-36); Mean Corpuscular Hemoglobin 27.8 pg (26-34); Mean Corpuscular Volume 87.9 fl (80-100); Mean Platelet Volume 11.6 fl (7.4-10.4); Monocytes Absolute Auto 0.4 K/mm3 (0.1-0.6); Monocytes Percent Auto 5.7 % (2.6-8.5); Neutrophils Percent Auto 73.1 % (45.5-73.1); Platelet Count Result 136 k/mm3 (150-375); Red Blood Count 3.38 M/mm3 (4.2-5.4); Red Cell Distribution Width 15.1 % (11.5-14.5); White Blood Count 6.9 K/mm3 (4.5-10.0)
[2023-07-26 11:19] LABS: Patient Weight 310 Lbs; Total Volume 24 Hour Urine 1600 ml
[2023-07-26 11:20] VITALS: BP 119/70; PULSE 88
[2023-07-26 11:29] LABS: Alanine Aminotransferase 38 U/L (6-35); Albumin Level 2.7 g/dL (3.5-5.1); Alkaline Phosphatase 134 U/L (38-126); Anion Gap 2 mmol/L (8-16); Aspartate Amino Transferase 27 U/L (14-36); Bilirubin,Total 0.5 mg/dL (0.2-1.3); Blood Urea Nitrogen 5 mg/dL (7-17); Calcium 8.3 mg/dL (8.4-10.2); Carbon Dioxide 21 mmol/L (22-30); Chloride 112 mmol/L (98-107); Estimated CRCL calculation 174 ml/min; Estimated Glomerular Filt Rate > 60; Glucose 110 mg/dL (65-110); Potassium 3.7 mmol/L (3.4-5.0); Sodium 135 mmol/L (137-145); Uric Acid 5.9 mg/dL (2.5-7.5)
[2023-07-26 11:29] LABS: Creatinine Urine 111.5 mg/dL; Total Protein Urine 24 Hr 128 mg/24hr (28-141); Total Protein Urine Random 8 mg/dL
--- NOTE | 2023-07-26 11:32 | PC.NURSE ---
Dr. Nelson informed of lab results in comparison to yesterdays. 24 hr urine not back yet. BP 119/70. OK to discharge to home. Have pt call office at 4pm today to go over 24 hr urine results. Pt verbalizes understanding.
== END 2023-07-26 11:34 | disposition home or self-care (01) ==
LOC: ANHOBOP 10:38 → ANHOBPP 10:39
PROVIDERS: PCP Internal Medicine; Visit Provider Obstetrics & Gynecology Gynecology
DX: O13.9 Gestational [pregnancy-induced] hypertension without significant proteinuria, unspecified trimester (principal); Z3A.00 Weeks of gestation of pregnancy not specified
CPT/HCPCS: 36415; 80053; 81050; 82575; 84156; 84550; 85025; 85055; 99199

== ENCOUNTER 2023-08-03 16:41 | Outpatient (CLI) | payer OTHER, SELFPAY ==
[2023-08-04 08:56] LABS: Hematocrit 34.9 % (37.0-47.0); Hemoglobin 9.9 g/dL (12.0-15.0); Mean Corpuscular HGB Conc 28.4 g/dl (32-36); Mean Corpuscular Hemoglobin 27.6 pg (26-34); Mean Corpuscular Volume 97.2 fl (80-100); Mean Platelet Volume 12.2 fl (7.4-10.4); Platelet Count Result 134 k/mm3 (150-375); Red Blood Count 3.59 M/mm3 (4.2-5.4); Red Cell Distribution Width 17.2 % (11.5-14.5); White Blood Count 8.3 K/mm3 (4.5-10.0)
== END 2023-08-03 16:42 | disposition home or self-care (01) ==
LOC: ANHLAB 16:45
PROVIDERS: PCP Internal Medicine; Visit Provider Obstetrics & Gynecology Gynecology
DX: Z11.3 Encounter for screening for infections with a predominantly sexual mode of transmission (principal); Z20.2 Contact with and (suspected) exposure to infections with a predominantly sexual mode of transmission
CPT/HCPCS: 36415; 85027

== ENCOUNTER 2023-08-10 09:05 | Outpatient (CLI) | payer OTHER, SELFPAY ==
[2023-08-10 09:33] LABS: Hematocrit 31.3 % (37.0-47.0); Hemoglobin 9.7 g/dL (12.0-15.0); Mean Corpuscular Hemoglobin 28.2 pg (26-34); Platelet Count Result 105 k/mm3 (150-375); Red Blood Count 3.44 M/mm3 (4.2-5.4); Red Cell Distribution Width 17.6 % (11.5-14.5); White Blood Count 7.2 K/mm3 (4.5-10.0)
[2023-08-10 12:59] LABS: Rapid Plasma Reagin Non-Reactive (NonReactive)
== END 2023-08-10 09:06 | disposition home or self-care (01) ==
LOC: ANHLAB 09:07
PROVIDERS: PCP Internal Medicine; Visit Provider Obstetrics & Gynecology Gynecology
DX: Z34.93 Encounter for supervision of normal pregnancy, unspecified, third trimester (principal); Z3A.00 Weeks of gestation of pregnancy not specified
CPT/HCPCS: 36415; 85027; 86592; 86850; 86900; 86901

== ENCOUNTER 2023-08-11 05:23 | Inpatient (IN) | payer OTHER, SELFPAY ==
[2023-08-11] VITALS (77 sets, daily range): BP systolic 103–162; BP diastolic 57–101; PULSE 61–140; RESP 16–18; TEMP 36.4–36.7; O2SAT 93–100; BMI 44.2
[2023-08-11] MEDS: LACTATED RINGERS 1,000 ML 125 ML IV CONT ×4 (06:00→08:45)
[2023-08-11] MEDS: ACETAMINOPHEN 500 MG TABLET 1000 MG PO (06:12)
[2023-08-11] MEDS: FAMOTIDINE 20 MG/2 ML VIAL IV PUSH (07:02)
[2023-08-11] MEDS: ONDANSETRON INJ 4 MG/2 ML VIAL IV PUSH (07:02)
--- NOTE | 2023-08-11 07:10 | WPDHPUPDATE1 ---
History and Physical Update Update Date/Time: 08/11/23 07:10 History and Physical has been reviewed, including an updated exam of the patient. There are NO changes in the patient's condition. Risks, benefits, and alternatives have been discussed and questions answered. Patient agrees to proceed with procedure.
--- NOTE | 2023-08-11 07:10 | PM.IMHP ---
H&P: HPI History of Present Illness Date/Time: 08/11/23 07:10 Chief Complaint: scheduled csection and tubal Narrative: The patient is a 33-year-old 2 para 1 admitted at 38 weeks for a repeat section with twins. Twins have been concordant in their growth. The has been otherwise uncomplicated. in addition the patient has requested permanent sterilization and will proceed with removal of bilateral tubes. labs A negative, rubella immune, RPR negative, hepatitis-B surface antigen, negative HIV negative, and group B strep negative. Review of Systems Review of Systems: not repeated day of surgery; patient states no changes in status PMF Past Medical History Medical History (Updated 08/11/23 @ 07:16 by Ann Nelson MD) B12 deficiency Hypothyroid Surgical History Surgical History (Updated 08/11/23 @ 07:16 by Ann Nelson MD) H/O myringoplasty History of section, low transverse Family History Family History Mother Ovarian cancer S/P KALE (total abdominal hysterectomy) Father Hypertension Social History Social History Smoking status: Never smoker Second hand tobacco smoke exposure: No Substance use: never Do You Feel Safe in your Home?: Yes Lack of Transportation: No Lack of Food: Never True Current Housing: I Have Housing Concerned About Future Housing: No Difficulty Paying Gas/Electric Bills: No Difficulty Paying for Meds: No Currently Unemployed: No Education: Master's Degree or Higher Difficulty w/ Childcare or Family Care: No Spiritual care concerns: No Meds Home Medications and Allergies Home Medications Medication Instructions Recorded Confirmed Type mecobalamin (vitamin B12) 1,000 1,000 mcg PO Q2D 11/09/20 08/11/23 History mcg chewable tablet aspirin 81 mg capsule 81 mg PO DAILY 07/26/23 08/11/23 History ergocalciferol (vitamin D2) 1,250 1,250 mcg PO WEEKLY 07/26/23 08/11/23 History mcg (50,000 unit) capsule (Vitamin D2) ferrous sulfate 325 mg (65 mg 325 mg PO BID 07/26/23 08/11/23 History iron) tablet levothyroxine 125 mcg tablet 125 mcg PO DAILY 07/26/23 08/11/23 History vit no.95-ferrous 1 tablet PO DAILY 07/26/23 08/11/23 History fumarate 28 mg-folic acid 800 mcg tablet () Allergies Allergy/AdvReac Type Severity Reaction Status Date / Time shellfish derived Allergy Hives Verified 08/11/23 06:25 Vital Signs Vital Signs - 24 hr 08/11/23 05:44 08/11/23 05:49 08/11/23 05:54 Pulse Rate Blood Pressure Pulse Oximetry 95 98 99 Oxygen Delivery 08/11/23 05:59 08/11/23 06:04 08/11/23 06:09 Pulse Rate Blood Pressure Pulse Oximetry 98 98 98 Oxygen Delivery 08/11/23 06:14 08/11/23 06:16 08/11/23 06:17 Pulse Rate 85 85 Blood Pressure 161/98 H 162/101 H Pulse Oximetry 98 Oxygen Delivery 08/11/23 06:19 08/11/23 06:20 08/11/23 06:25 Pulse Rate Blood Pressure Pulse Oximetry 100 99 100 Oxygen Delivery 08/11/23 06:30 08/11/23 06:31 08/11/23 06:32 Pulse Rate 89 94 Blood Pressure 135/78 117/78 Pulse Oximetry 98 Oxygen Delivery 08/11/23 06:35 08/11/23 06:40 08/11/23 06:45 Pulse Rate Blood Pressure Pulse Oximetry 98 99 98 Oxygen Delivery 08/11/23 06:46 08/11/23 06:50 08/11/23 06:52 Pulse Rate 76 Blood Pressure 130/73 Pulse Oximetry 100 99 Oxygen Delivery 08/11/23 06:57 08/11/23 07:01 08/11/23 07:02 Pulse Rate 79 Blood Pressure 130/80 Pulse Oximetry 99 99 Oxygen Delivery 08/11/23 06:16 Pulse Rate Blood Pressure Pulse Oximetry Oxygen Delivery Room Air Exam Const: General: healthy appearing and alert Orientation/consciousness: patient oriented x3 Resp: Effort & Inspection: normal respiratory effort GI: GI
--- NOTE | 2023-08-11 07:24 | WPDANESEPPF ---
Anes - Initial Pre Proc Eval Procedure: Operation Date: 08/11/23 07:30 Proposed Procedures p Repeat Section, Bilateral Salpingectomy - Ann Nelson MD Date/Time: 08/11/23 07:24 Surgeon: Ann Nelson MD Pre Op Diagnosis: C/S Patient Data Age: 33 Gender: F Height: 1.75 m Weight: 136 kg Last Vital Signs Pulse 79 08/11/23 07:01 BP 130/80 08/11/23 07:01 Pulse Ox 99 08/11/23 07:02 O2 Del Method Room Air 08/11/23 06:16 Allergies Allergy/AdvReac Type Severity Reaction Status Date / Time shellfish derived Allergy Hives Verified 08/11/23 06:25 Home Medications Medication Instructions Recorded Confirmed Type mecobalamin (vitamin B12) 1,000 1,000 mcg PO Q2D 11/09/20 08/11/23 History mcg chewable tablet aspirin 81 mg capsule 81 mg PO DAILY 07/26/23 08/11/23 History ergocalciferol (vitamin D2) 1,250 1,250 mcg PO WEEKLY 07/26/23 08/11/23 History mcg (50,000 unit) capsule (Vitamin D2) ferrous sulfate 325 mg (65 mg 325 mg PO BID 07/26/23 08/11/23 History iron) tablet levothyroxine 125 mcg tablet 125 mcg PO DAILY 07/26/23 08/11/23 History vit no.95-ferrous 1 tablet PO DAILY 07/26/23 08/11/23 History fumarate 28 mg-folic acid 800 mcg tablet () Patient hx anesthesia problems: none Family hx anesthesia problems: none Results Review: All pre-operative results and documents have been reviewed as part of the pre-operative evaluation. [facility] Past Medical History Medical History B12 deficiency Hypothyroid Surgical History Surgical History H/O myringoplasty History of section, low transverse Family History Family History Mother Ovarian cancer S/P KALE (total abdominal hysterectomy) Father Hypertension Social History Social History Smoking status: Never smoker Second hand tobacco smoke exposure: No Substance use: never Do You Feel Safe in your Home?: Yes Lack of Transportation: No Lack of Food: Never True Current Housing: I Have Housing Concerned About Future Housing: No Difficulty Paying Gas/Electric Bills: No Difficulty Paying for Meds: No Currently Unemployed: No Education: Master's Degree or Higher Difficulty w/ Childcare or Family Care: No Spiritual care concerns: No Anes - Eval Final PreProcedure Day of Procedure 08/11/23 07:24 Patient weight: morbidly obese Heart: regular rate and rhythm Lungs: clear to auscultation Airway: Mallampati scale class II Neurological: alert and oriented Last oral intake: >/= 8 hours ASA classification: III Emergent: no Anesthetic plan: proceed Anesthesia type and monitoring: regional spinal and standard monitoring Results Review: All pre-operative results and documents have been reviewed as part of the pre-operative evaluation. Informed Consent: The patient's anesthetic plan and its attendant risks and benefits were discussed with the patient/family/POA. Questions were solicited and answers provided to the satisfaction of the patient/family/POA.
[2023-08-11] MEDS: ceFAZolin 3 GM/D5W 100 ML 100 ML IVPB (07:33)
--- NOTE | 2023-08-11 09:00 | W.PM.PROC2 ---
Procedure Note - Detailed Date of Procedure 08/11/23 Pre-op Diagnosis intrauterine at 38 weeks diamniotic dichorionic twins breech - vertex position previous section encounter for sterilization Post-op Diagnosis Same Procedure Performed repeat low-transverse section and bilateral salpingectomy Surgeon Ann Nelson MD Anesthesia Spinal
--- NOTE | 2023-08-11 09:04 | W.PM.OBCSD ---
OB - Delivery Note Procedure Delivery date: 08/11/23 Pre-op diagnosis: Multiple Gestation ( diamniotic dichorionic twins breech vertex), Previous Delivery and Other ( encounter for sterilization) Post-op Diagnosis: Same Induction method: None Procedure Performed: Repeat Secondary branch: low cervical, transverse and Tubal Ligation Surgeon: Ann Nelson MD Anesthesia type: Spinal Description of Procedure/Findings: The patient is taken to the operating room and placed under anesthesia in the dorsal supine position with a leftward tilt. She was prepped and draped in the usual sterile fashion. Once anesthesia was deemed adequate a Pfannenstiel skin incision was made through the prior incision. The incision was carried down to the fascia which was nicked in the midline and extended laterally using Salazar scissors. Ochsner was used to tent the fascia which was then dissected off using sharp and blunt dissection. The rectus muscles were in the midline and the peritoneum tented and entered with Metzenbaum scissors. The incision was extended with blunt traction. The bladder blade is placed. The vesicouterine peritoneum was tented and entered with Metzenbaum scissors. The incision was extended laterally and the bladder flap created digitally. The lower uterine segment was incised in a transverse fashion with the scalpel and extended with blunt traction. The feet are grasped and delivered the infant to the scapula. The infant was rotated and the left arm delivered while splinting the humerus. The infant was rotated and the right arm was delivered while splinting the humerus. The infant was extended on the abdomen and the head delivered. The cord was clamped and cut the handed to the waiting nursery nurse and refrigeration service technician. Twin B membranes are then ruptured and clear fluid noted. The vertex is guided with a sterile hand while the assistant golf course superintendent applied fundal pressure. The was fully delivered and the cord was clamped and cut. The was handed to the waiting nursery nurse and refrigeration service technician. Cord blood and cord gases were taken. The placentas were removed using manual traction. Due to the large size of the uterus it was left in situ. The Lenny O retractor was placed. The posterior edge of the uterine incision was grasped with a ring forcep. The uterine incision was closed using 0 Monocryl in a running locked fashion with the same suture used to imbricate good hemostasis is noted. The left fallopian tube was grasped with a Dayanara and crossclamped using a Z clamp leaving approximately 2cm of the tube at the cornua. The tube is excised and 0 Vicryl Alison stitched and free tied the pedicle. Good hemostasis was noted. The identical procedure was performed on the right side however the proximal portion of the tube slipped free from the clamp. This is suture ligated x2 and good hemostasis obtained. The incision was again inspected and noted to be hemostatic. The Lenny O retractor was removed. The fascia was closed using 0 Vicryl in a running fashion. Subcutaneous tissues are irrigated made hemostatic using Bovie cautery. Skin incision was closed using 4-0 Vicryl in a subcuticular fashion. Dermaflex was placed over the incision and when dry the Mepilex dressing is placed. Sponge, needle, and instrument counts are correct per the OR staff. Patient received 3g of Ancef prior to incision. Specimen: Yes ( Placentas and bilateral tubes) Estimated Blood Loss: 655 Drains: Yes ( Glaser catheter) Packing: No Pathology: Yes ( see above) Complications: No immediate complications Condition: Stable Disposition: [facility] [place] Baby Date of : 08/11/23 Weeks of gestation at delivery: 38 Infant gender: Female Weight (pounds): 8 Weight (ounces): 2 presentation: breech position: Other ( double footling) Placenta delivery description: Spontaneous Cord Vessel Descrip
--- NOTE | 2023-08-11 09:13 | PM.OBDSVD ---
DS: Admitting Diagnosis Discharge Date 08/14/23 Admitting Diagnosis intrauterine at 38 weeks diamniotic dichorionic twins previous section encounter for sterilization DS: Discharge Diagnosis Discharge Diagnosis (1) delivery delivered: Code(s): O82 - Encounter for delivery without indication Status: Acute OB - DS: Summary OB Procedures : NST and Ultrasound OB Procedures Intrapartum: low cervical, transverse and Tubal ligation OB Procedures: : None Peripartum Data Infant Delivery Method: Section Procedures: Procedures Operation Date: 08/11/23 07:30 <No data on this case meets the specified criteria> complications: none Status at Discharge Functional status at discharge: independent ambulation Overall status at discharge: patient is progressing back to baseline Time Spent with Patient Time attestation: Total time spent providing and/or coordinating discharge services: Discharge Plan Discharge Attending physician on discharge: Ann Nelson Discharging Clinician: Ann Nelson Anticipated Discharge Date/Time: 08/14/23 09:15 Patient Disposition: Home, Self-Care Activity: may shower, may drive after 2 weeks and pelvic rest Diet: regular Wound Care Instructions: keep dressing dry Discharge Instructions: Education: Mom and Baby Guide Given to: Mother Follow-Up: Call your delivering provider's office for an appointment to be seen in: 1 Week Mom and baby should come to the [facility] for the follow-up appointment. Appointment Date/Time: August 15, 2023 at 8:00 am What to expect at your follow-up visit: Physical Assessment Call [phone] if you are unable to keep your appointment time. BREAST CARE: * Wear a snug supportive bra. * For engorgement discomfort: Breast Feeding: * Apply warm moist washcloths * Express milk as needed to relieve engorgement * Wear loose clothing Bottle Feeding: * May apply ice packs * For sore nipples: * Identify correct latch-on * Apply warm moist washcloths before and after nursing * Air dry nipples after nursing * May apply Lansinoh cream to nipples ABDOMINAL INCISION: (if applicable) * Allow incision to air dry * Do NOT use lotions for powders on your incision * When showering, allow soap and water to run over the incision, but do not wash incision EPISIOTOMY/PERINEAL CARE: * Until bleeding stops, use your constantino bottle after urinating * Change your pad frequently throughout the day * No tub baths until seen by your physician - You may shower ACTIVITY: * Rest as much as possible. * Do not exercise or lift anything heavier than your baby (such as laundry or other children.) * Avoid stairs or driving as much as possible. * Do not put anything into the vagina. No douching, tampons, or sexual activity until seen by physician. NOTIFY PHYSICIAN IF YOU HAVE ANY QUESTIONS OR IF ANY OF THE FOLLOWING SYMPTOMS OCCUR: * If your incision becomes red, swollen, or more painful than what you have experienced in the hospital. * If your vaginal bleeding becomes foul smelling. * If your vaginal bleeding becomes more heavy than a period or if your bleeding changes from pink to bright red. However, you may pass an occasional walnut-sized clot once or twice for the first week . * If you experience a sharp, shooting pain in you calves. * If you discover a hard, reddened area on your breast or if you experience flu-like symptoms. DIET: * Eat regular, well-balanced meals. * Drink plenty of fluids daily. If , drink to thirst. Stand Alone Forms: General Discharge Information Follow-up/Referrals: Ann Nelson MD [Physician] - 1 Week ( and 6 week) Discharge Medications: New hydrocodone-acetaminophen 5-325 mg tablet
--- NOTE | 2023-08-11 10:11 | PC.NURSE ---
FHT obtained after spinal insertion. Baby A FHT 140 at 7:43. Baby B FHT 115 7:43.
[2023-08-11] MEDS: OXYTOCIN 30 UNITS/NS 500 ML 30 UNITS/500 ML BAG 125 UNITS IV CONT (10:52)
[2023-08-11] MEDS: SIMETHICONE 80 MG TAB.CHEW PO ×2 (12:31→17:01)
[2023-08-11] MEDS: ACETAMINOPHEN 325 MG TABLET 650 MG PO ×2 (12:31→18:51)
[2023-08-11] MEDS: KETOROLAC 15 MG/ML VIAL (*BKC) IV PUSH ×2 (12:31→18:51)
[2023-08-11] MEDS: LIDOCAINE 5% PATCH 1 PATCH TRANSDERM (12:31)
--- NOTE | 2023-08-11 13:50 | PC.NURSE ---
[id number] Introductions were made, then consulted with patient to assess needs related to . Discussed with mother her?plans to feed?her infant, the?experience so far, history of low to no milk supply with the first. Patient has hypothyroidism and shares she is not going to worry about how the twins feed since there are two and she has a toddler with possible low milk supply. It is reported that baby twin boy B latched downstairs and baby twin girl A did not. Parents have bottle fed the baby girl and RN LC encouraged skin to skin with baby boy. Resources [facility] for [facility] and [facility]. Mother voiced understanding of information and will call if there is a request for assistance. Reported to the Primary RN.
--- NOTE | 2023-08-11 13:54 | PC.NURSE ---
1348 - Both Primary RN and LC offered to initiate pumping with mother and to call out if she would like to pump. Mother is not wanting to pump at this time. Reviewed milk production briefly as mother is not going to worry about it like she did with her first.
[2023-08-11] MEDS: DEXTROSE 5%/0.45% SOD CHL 1,000 ML 125 ML IV CONT (15:40)
[2023-08-11] MEDS: DOCUSATE SODIUM 100 MG CAPSULE PO (17:01)
[2023-08-11] MEDS: POLYSACCHARIDE IRON COMPLEX 150 MG CAPSULE PO (17:01)
[2023-08-12] MEDS: ACETAMINOPHEN 325 MG TABLET 650 MG PO ×2 (00:40→06:56)
[2023-08-12] MEDS: KETOROLAC 15 MG/ML VIAL (*BKC) IV PUSH ×2 (00:40→07:07)
[2023-08-12] MEDS: HYDROcodone/acetaminophen (*CRX) 5-325 MG TABLET 1 TAB PO ×3 (04:00→19:21)
[2023-08-12 04:35] VITALS: BP 147/84; PULSE 74; RESP 16; O2SAT 100
[2023-08-12 05:17] LABS: Basophils Percent Auto 0.3 % (0.2-1.2); Eosinophils Absolute Auto 0.1 K/mm3 (0-0.3); Hemoglobin 8.4 g/dL (12.0-15.0); Immature Granulocyte Absolute 0.04 K/mm3 (0.00-0.031); Immature Granulocyte Percent A 0.6 % (0-0.5); Lymphocytes Absolute Auto 1.55 K/mm3 (0.9-3.2); Lymphocytes Percent Auto 22.3 % (18.3-44.2); Mean Corpuscular Hemoglobin 27.6 pg (26-34); Mean Corpuscular Volume 92.1 fl (80-100); Mean Platelet Volume 13.2 fl (7.4-10.4); Monocytes Absolute Auto 0.4 K/mm3 (0.1-0.6); Monocytes Percent Auto 6.2 % (2.6-8.5); Neutrophils Absolute Auto 4.8 K/mm3 (1.3-6.7); Neutrophils Percent Auto 69.6 % (45.5-73.1); Platelet Count Result 103 k/mm3 (150-375); Red Blood Count 3.04 M/mm3 (4.2-5.4); Red Cell Distribution Width 18.1 % (11.5-14.5); White Blood Count 6.9 K/mm3 (4.5-10.0)
[2023-08-12] MEDS: LEVOTHYROXINE SODIUM 125 MCG TABLET PO (06:57)
[2023-08-12 07:15] VITALS: BP 112/83; PULSE 74; RESP 16; TEMP 36.5; O2SAT 100
--- NOTE | 2023-08-12 09:41 | P.PNOB_ITS ---
OB - PN: Subj Subjective Date/time seen: 08/12/23 09:41 Narrative: Pain OK. Tolerating diet. OB - PN: Obj Data Labs 08/12/23 03:55 Labs: Laboratory Results - last 24 hr 08/12/23 03:55 WBC 6.9 RBC 3.04 L Hgb 8.4 L Hct 28.0 L MCV 92.1 MCH 27.6 MCHC 30.0 L RDW 18.1 H Plt Count 103 L MPV 13.2 H Immature Gran % (Auto) 0.6 H Neut % (Auto) 69.6 Lymph % (Auto) 22.3 [place] % (Auto) 6.2 Eos % (Auto) 1.0 Baso % (Auto) 0.3 Lymph # (Auto) 1.55 [place] # (Auto) 0.4 Eos # (Auto) 0.1 Baso # (Auto) 0.0 Abs Immat Gran (auto) 0.04 H Absolute Neuts (auto) 4.8 Absolute Nucleated RBC 0.0 Nucleated RBC % 0.0 % Immature Plt Fraction 16.0 H Blood Type A Negative Antibody Screen Negative Screen Negative Baby's Blood Type O pos Baby's APRIL Negative Doses of RhIg Required 1 OB - PN A/P Plan Comments: A: POD#1, doing well. P: Routine care. Exam Narrative: AVSS I/O OK ABD soft, nontender, fundus firm. Bandage dry. EXT nontender
[2023-08-12] MEDS: POLYSACCHARIDE IRON COMPLEX 150 MG CAPSULE PO ×2 (10:10→17:36)
[2023-08-12] MEDS: DOCUSATE SODIUM 100 MG CAPSULE PO ×2 (10:11→17:36)
[2023-08-12] MEDS: MULTIVIT/MIN/PREN/FOL AC/IRON TABLET 1 TAB PO (10:11)
[2023-08-12] MEDS: SIMETHICONE 80 MG TAB.CHEW PO ×3 (10:12→17:36)
[2023-08-12] MEDS: RHO(D) IMMUNE GLOBULIN 300 MCG/2 ML SYRINGE IM (10:19)
[2023-08-12] MEDS: IBUPROFEN 600 MG TABLET PO ×2 (13:03→19:21)
[2023-08-12] MEDS: LIDOCAINE 5% PATCH 1 PATCH TRANSDERM (15:26)
--- NOTE | 2023-08-12 15:43 | WPDANLDPN2 ---
Anes-Prog Note L&D Date/Time: 08/12/23 15:43 Comfortable throughout: section Neuraxial method: spinal Epidural/Spinal procedure site: clean & non-tender Neuro status: Neuro function grossly intact. Cardiovascular status: normal Respiratory status: normal Airway patency: baseline Mental status: baseline Post-Op hydration status: normal Vital Signs: Last Vital Signs Temp 36.5 C 08/12/23 07:15 Pulse 74 08/12/23 07:15 Resp 16 08/12/23 07:15 BP 112/83 08/12/23 07:15 Pulse Ox 100 08/12/23 07:15 O2 Del Method Room Air 08/12/23 07:15 Pain score (VAS): 2/10 I/O: Intake & Output 08/11/23 08/12/23 08/12/23 23:59 07:59 15:59 Intake Total 1500 Output Total 825 1050 Balance 675 -1050 Post-procedural complaints: none Patient feedback: Patient satisfied with anesthetic care.
--- NOTE | 2023-08-12 15:44 | WPDANLDNPN2 ---
Anes-Prog Note L&D-Neuraxial Date/Time: 08/12/23 15:44 Neuraxial medications: intrathecal PF morphine Opiod-related complaints: none Patient feedback: Patient satisfied with post-operative pain management.
[2023-08-12 19:20] VITALS: BP 158/70; PULSE 80; RESP 16; TEMP 36.8; O2SAT 99
[2023-08-13] MEDS: IBUPROFEN 600 MG TABLET PO ×3 (02:03→15:03)
[2023-08-13] MEDS: HYDROcodone/acetaminophen (*CRX) 5-325 MG TABLET 1 TAB PO ×4 (02:03→17:35)
[2023-08-13] MEDS: LEVOTHYROXINE SODIUM 125 MCG TABLET PO (06:18)
[2023-08-13] MEDS: SIMETHICONE 80 MG TAB.CHEW PO ×3 (08:16→17:35)
[2023-08-13 08:22] VITALS: BP 142/80; PULSE 72; RESP 20; TEMP 36.6; O2SAT 100
[2023-08-13] MEDS: MULTIVIT/MIN/PREN/FOL AC/IRON TABLET 1 TAB PO (10:00)
[2023-08-13] MEDS: POLYSACCHARIDE IRON COMPLEX 150 MG CAPSULE PO ×2 (10:00→17:35)
[2023-08-13] MEDS: DOCUSATE SODIUM 100 MG CAPSULE PO ×2 (10:00→17:35)
--- NOTE | 2023-08-13 10:15 | PM.OBPNVD ---
OB - PN: Subj Subjective Date/time seen: 08/13/23 10:15 Narrative: Pain OK. Tolerating diet. OB - PN: Obj Data Labs 08/12/23 03:55 OB - PN A/P Plan Comments: A: POD#2, doing well. P: Routine care. Exam Narrative: AVSS I/O OK ABD soft, nontender, fundus firm. Incision c/d/i. EXT nontender
[2023-08-13] MEDS: ACETAMINOPHEN 325 MG TABLET 650 MG PO (15:03)
[2023-08-13 20:14] VITALS: BP 137/80; PULSE 73; RESP 18; TEMP 36.5; O2SAT 99
[2023-08-14] MEDS: IBUPROFEN 600 MG TABLET PO ×2 (01:34→09:14)
[2023-08-14] MEDS: HYDROcodone/acetaminophen (*CRX) 5-325 MG TABLET 1 TAB PO (01:34)
[2023-08-14] MEDS: LEVOTHYROXINE SODIUM 125 MCG TABLET PO (06:36)
[2023-08-14 08:10] VITALS: BP 131/83; PULSE 76; RESP 16; TEMP 36.6; O2SAT 100
--- NOTE | 2023-08-14 09:09 | PM.OBPNVD ---
OB - PN: Subj Subjective Date/time seen: 08/14/23 09:09 Patient comments: no complaints and pain well controlled baby status: doing well OB - PN: Obj Data Labs 08/12/23 03:55 OB - PN A/P Plan day: 3 Plan: routine care, discharge home (if infants weights stable) and follow up 6 weeks (and 1 week) Time Spent With Patient Time: Total time spent is greater than 50% in coordination of care (as documented) at patient's floor/unit and/or counseling patient: Exam Narrative: fundus nt, firm bandage intact
[2023-08-14] MEDS: DOCUSATE SODIUM 100 MG CAPSULE PO (09:13)
[2023-08-14] MEDS: POLYSACCHARIDE IRON COMPLEX 150 MG CAPSULE PO (09:13)
[2023-08-14] MEDS: ACETAMINOPHEN 325 MG TABLET 650 MG PO (09:14)
[2023-08-14] MEDS: SIMETHICONE 80 MG TAB.CHEW PO (09:14)
[2023-08-14] MEDS: MULTIVIT/MIN/PREN/FOL AC/IRON TABLET 1 TAB PO (09:14)
--- NOTE | 2023-08-14 09:15 | PC.NURSE ---
Patient instructed on viewing the discharge video Mother & Baby Care, The First Two Weeks online. Patient was given the opportunity and encouraged to ask questions. Patient verbalized understanding of information shared and has been given the mother/baby guide for home reference.
[2023-08-15 08:48] VITALS: BP 154/89; PULSE 75; RESP 18; TEMP 36.7; O2SAT 100
== END 2023-08-14 13:56 | disposition home or self-care (01) | DRG 785 ==
LOC: ANHLDR 09:16 → ANHOB2 11:15
PROVIDERS: Admitting Provider Obstetrics & Gynecology Gynecology; PCP Internal Medicine; Visit Provider Obstetrics & Gynecology Gynecology
PROC: 10D00Z1 Extraction of Products of Conception, Low, Open Approach (ICD-10-PCS; CPT 59514; principal; 2023-08-11 07:30)
DX: O34.219 Maternal care for unspecified type scar from previous cesarean delivery (principal); O30.043 Twin pregnancy, dichorionic/diamniotic, third trimester; Z30.2 Encounter for sterilization; O32.8XX1 Maternal care for other malpresentation of fetus, fetus 1; O99.284 Endocrine, nutritional and metabolic diseases complicating childbirth; E53.8 Deficiency of other specified B group vitamins; E03.9 Hypothyroidism, unspecified; Z3A.38 38 weeks gestation of pregnancy; Z37.2 Twins, both liveborn
CPT/HCPCS: 36415; 85025; 85055; 85461; 86850; 86900; 86901; 88302; 88307; 90384; A9270; J0690; J1885; J2274; J2371; J2405; J2590; J2790; J7120

== ENCOUNTER 2023-08-18 15:17 | Outpatient (CLI) | payer OTHER, SELFPAY ==
[2023-08-18] VITALS (20 sets, daily range): BP systolic 149–171; BP diastolic 76–114; PULSE 67–194; O2SAT 98–100
[2023-08-18 15:51] LABS: Basophils Percent Auto 0.5 % (0.2-1.2); Eosinophils Absolute Auto 0.1 K/mm3 (0-0.3); Eosinophils Percent Auto 2.2 % (0-4.4); Hematocrit 29.7 % (37.0-47.0); Hemoglobin 9.1 g/dL (12.0-15.0); Immature Granulocyte Absolute 0.04 K/mm3 (0.00-0.031); Immature Granulocyte Percent A 0.6 % (0-0.5); Lymphocytes Absolute Auto 1.52 K/mm3 (0.9-3.2); Lymphocytes Percent Auto 23.4 % (18.3-44.2); Mean Corpuscular HGB Conc 30.6 g/dl (32-36); Mean Corpuscular Hemoglobin 28.2 pg (26-34); Mean Platelet Volume 10.5 fl (7.4-10.4); Monocytes Absolute Auto 0.4 K/mm3 (0.1-0.6); Monocytes Percent Auto 5.7 % (2.6-8.5); Neutrophils Absolute Auto 4.4 K/mm3 (1.3-6.7); Neutrophils Percent Auto 67.6 % (45.5-73.1); Platelet Count Result 244 k/mm3 (150-375); Red Blood Count 3.23 M/mm3 (4.2-5.4); Red Cell Distribution Width 18.3 % (11.5-14.5); White Blood Count 6.5 K/mm3 (4.5-10.0)
[2023-08-18 16:05] LABS: Alanine Aminotransferase 19 U/L (6-35); Albumin Level 3.6 g/dL (3.5-5.1); Alkaline Phosphatase 109 U/L (38-126); Anion Gap 8 mmol/L (8-16); Aspartate Amino Transferase 28 U/L (14-36); Bilirubin,Total 0.5 mg/dL (0.2-1.3); Blood Urea Nitrogen 9 mg/dL (7-17); Calcium 9.1 mg/dL (8.4-10.2); Carbon Dioxide 24 mmol/L (22-30); Chloride 108 mmol/L (98-107); Estimated Glomerular Filt Rate > 60; Glucose 107 mg/dL (65-110); Potassium 3.8 mmol/L (3.4-5.0); Sodium 140 mmol/L (137-145); Uric Acid 7.3 mg/dL (2.5-7.5)
--- NOTE | 2023-08-18 16:05 | PC.NURSE ---
Left message for Dr. Nelson to call back regarding severe BPs
--- NOTE | 2023-08-18 16:08 | PC.NURSE ---
Received call back from Dr. Nelson. orders for procardia, see MAR
[2023-08-18] MEDS: NIFEdipine 30 MG TAB.ER.24 PO (16:15)
--- NOTE | 2023-08-18 16:52 | PC.NURSE ---
Paged Dr. Nelson to notify of continuous severe BPs.
--- NOTE | 2023-08-18 16:55 | PC.NURSE ---
Received call back from Dr. Nelson. Would like labetalol and tylenol given, see MAR.
[2023-08-18] MEDS: ACETAMINOPHEN 500 MG TABLET 1000 MG PO (17:09)
[2023-08-18] MEDS: LABETALOL HCL 100 MG TABLET PO (17:09)
[2023-08-18] MEDS: LABETALOL HCL 100 MG TABLET (17:50)
== END 2023-08-18 19:10 ==
LOC: ANHOBOP 15:22 → ANHOBPP 15:23
PROVIDERS: PCP Internal Medicine; Visit Provider Obstetrics & Gynecology Gynecology
DX: O16.5 Unspecified maternal hypertension, complicating the puerperium (principal)
CPT/HCPCS: 36415; 80053; 84550; 85025; 99199; A9270

== ENCOUNTER 2024-04-03 08:06 | Outpatient (CLI) | payer OTHER, SELFPAY ==
--- NOTE | ~2024-04-03 | MM_ITS ---
EXAMINATION: MM diagnostic bulmaro LT w chelsea HISTORY: Left breast lump in the outer quadrant TECHNIQUE: Additional 3-D tomosynthesis images of the left breast were performed and synthetic 2-D im ages were generated. CAD analysis was submitted and interpreted. High resolution Limited left breast ultrasound was performed. COMPARISON: None BREAST PARENCHYMAL COMPOSITION: Not dense: There are scattered areas of fibroglandular density. FINDINGS: MAMMOGRAPHIC FINDINGS: There is a mass in the upper outer quadrant of the left breast. There are no suspicious calcification s or architectural distortion. ULTRASOUND: Limited left breast ultrasound: At 12:00, 4 cm from the nipple there is an irregular shaped hypoechoi c mass measuring 1.6 x 1.2 x 1.3 cm with internal vascularity. IMPRESSION: 1. Complex 1.6 cm left breast mass at 12:00, 4 cm from the nipple. 2. Ultrasound-guided left breast biopsy recommended. BI-RADS category 4, suspicious findings. Reviewed, dictated and finalized at location B.
--- NOTE | ~2024-04-03 | US_ITS ---
Please refer to diagnostic mammogram report dated 04/03/2024 for details. Reviewed, dictated and finalized at location B.
== END 2024-04-03 08:07 | disposition home or self-care (01) ==
LOC: MICIMG 08:07
PROVIDERS: PCP Internal Medicine; Visit Provider Nurse Practitioner Women's Health
DX: N63.20 Unspecified lump in the left breast, unspecified quadrant (principal); R92.8 Other abnormal and inconclusive findings on diagnostic imaging of breast
CPT/HCPCS: 76642; 77061; 77065; G0279

== ENCOUNTER 2025-06-16 01:56 | Day surgery (SDC) | payer OTHER, SELFPAY ==
[2025-06-09 14:28] VITALS: BMI 35.0
--- NOTE | 2025-06-09 14:36 | PC.NURSE ---
[facility] has started construction of its new state of the art ER which will open Spring 2026. With this, we anticipate parking may be a challenge for some our surgical patients and families. Parking spaces are limited but are available for all Surgical, obstetrics, and ER patients sharing this lot. If you arrive and find you are having a hard time finding a parking space, please note that we understand the challenges, please drive around the hospital and park near Hospital Entrance 1. When you enter this entrance, you can ask a volunteer to direct or take you back to the surgical waiting area to check in. We appreciate everyone?s understanding of these expected challenges while we build for your future. Report to the Outpatient Waiting Room, entrance under the green pavilion located off [address], at time _0700_ on date _[id number]_. Planned Procedure Time: _0900_.? Time changes happen often and if your time is changed the preop area will call you the afternoon before. - You and your visitor will be asked to self-screen and do not enter if you have any COVID symptoms. Please call surgeon if you need to reschedule. - A mask is optional within the hospital at this time. Patients may have clear liquids (water, carbonated beverages, clear teas, apple juice) until 3 hours prior to surgery with a maximum of 20 ounces. - No food from midnight until time of surgery and no smoking, or chewing tobacco (or any form of nicotine). No chewing gum, candy or mints. Take only the following medications with a SIP of water on the morning of surgery: ___Levothyroxine____ DO NOT STOP ANY OF YOUR OTHER PRESCRIPTION MEDICATIONS PRIOR TO SURGERY EXCEPT THE FOLLOWING Hold all vitamins and supplements for 3 days per anesthesiologist. Medications to discontinue per physician ___Hold weight loss medicine until after surgery.___ Date to take last dose Please no make-up, nail chinese, hairspray, perfume, deodorant, or body powder the day of surgery.? No jewelry (including any body piercings) or valuables the day of surgery, leave them at home.? Please take a shower or bath the night before, or the morning of, surgery with an antibacterial soap.? Wear comfortable, loose fitting clothing.? - Jewelry must be removed prior to entering the operating room.? Rings and piercings that are not removed may be cut off. - The hospital will not accept responsibility for valuables.? - Please leave all valuables, including medications, at home the day of surgery. If you are going home after surgery, a licensed helper driver must drive you home.? - NO public transportation without another adult if you receive anesthesia. - We recommend that an adult stay with you for 24 hours following discharge. - We also recommend that you do not drive, make important decision, drink alcoholic beverages, or take any drugs that were not prescribed by your health care provider for at least 24 hours after your discharge time. Follow any additional instructions given to you from your surgeon. Telephone instructions given to __Vangie__and asked if any additional questions and then verbalized understanding. Patient advised to call surgeon office or pre surgery nurse liaison [phone] if any additional questions.
--- OUTSIDE RECORDS SUMMARY | 2025-06-16 01:59 | XMS_ITS | Clinical Summary ---
Author Organization [facility] [address] Address [address] [place] [id number] Care Team Providers Care Wigs Salesperson Name Role Phone Rafael Marte MD Primary Care Provider + Allergies No known active allergies Medications cholecalciferol (VITAMIN D-3) 50,000 unit capsule Take 1 capsule (50,000 Units total) by mouth once a week 06/04/20 Active ondansetron ODT (ZOFRAN-ODT) 4 mg disintegrating tabletIndications: Gastroenteritis Take 1 tablet (4 mg total) by mouth every 8 (eight) hours as needed for nausea or vomiting 20 tablet 06/09/20 24 Active Additional Information Patient not taking.Reported on 05/08/2025 ibuprofen (ADVIL,MOTRIN) 800 mg tablet Take 1 tablet (800 mg total) by mouth 2 (two) times a day as needed for pain (pain) 30 tablet 02/24/20 25 Active Additional Information Patient not taking.Reported on 05/08/2025 levothyroxine (SYNTHROID) 125 mcg tablet 04/27/20 25 Active Active Problems Problem Noted Date Diagnosed Date Post-op pain 05/08/2025 Failure to progress in labor 05/08/2025 delivery delivered 05/08/2025 Iron deficiency anemia 12/23/2024 Encounters Date Type Department Care Team Description 05/09/2025 1:51 PM PARK KEEPER - 05/09/2025 11:59 PM PARK KEEPER Hospital Encounter [facility] [address] [place] [address] Excessive and frequent menstruation with regular cycle Discharge Disposition: Discharge to home or self care 05/08/2025 2:03 PM PARK KEEPER - 05/08/2025 11:59 PM PARK KEEPER Hospital Encounter [facility] [place] [facility] Breast [facility] [address] [facility] [address] [place] [address] Abnormal finding on breast imaging Discharge Disposition: Discharge to home or self care 05/08/2025 1:30 PM PARK KEEPER Office Visit [facility] Medicine Surgery [address] [facility] [address] [place] [address] Sharyn Leon, ALIYA Abnormal finding on breast imaging (Primary Dx); Mass of left breast, unspecified quadrant; Family history of breast cancer from Last 3 Months Immunizations Immunization Administration Dates Next Due COVID-19 mRNA (eleni) 0.3 m L (30 mcg) vaccine (12 years and up) 07/14/2023 DTaP 01/18/1996, 3,1991,09/17,1991 HPV, Quadrivalent 01/02/2009,08/28/2008,06/02/20 08 Hep A, Pediatric 08/28/2008,03/07/2006 Hep B, Adolescent or Pediatric 08/12/1996,1995,01/18/1996 HiB 1991,1991,1991 IPV 01/18/1996, 3,1991,09/17,1991 Influenza, Quadrivalent, Mary l Culture-based MDCK, Antibiotic Free, Intramuscular 03/28/2019 Influenza, Quadrivalent, Spl it, Preservative Free, Intramuscular 03/16/2023,03/24/2022,04/08/2021,03/12 Influenza, Trivalent, IM (MDV) 04/30/2019 Influenza, Trivalent, Preser vative Free, Intramuscular 03/21/2024,02/20/2024 MMR 01/18/1996,08/12/1992 RSV, Bivalent, Protein Subun it Rsvpref, Diluent (Abrysvo) 07/14/2023 Td, adsorbed 06/19/2005,03/25/2002 Tdap 08/30/2023,01/27/2020,03/17/2006 Surgical History Surgery Date Site/Laterality Comments SECTION, CLASSIC 06/19/2020 - 06/18/2021 SECTION, CLASSIC 06/19/2023 - 06/18/2024 NECK SURGERY 06/19/2021 - 06/18/2022 cyst removed Medical History Medical History Date Comments Overweight Hypothyroidism Family History Medical History Relation Name Comments Ovarian cancer Maternal Grandmother Sickle cell anemia Maternal Grandmother Ovarian cancer Mother Breast cancer Mother's Sister Lung cancer Paternal Grandfather Relation Name Status Comments Maternal Grandmother Mother Mother's Sister Paternal Grandfather Social History Tobacco Use Types Packs/Day Years Used Date Smoking Tobacco: Never Passive Smoke Exposure: Never Smokeless Tobacco: Never Tobacco Cessation:Counseling Given: Not Answered AUDIT-C Answer Date Recorded Q1: How often do you have a drink containing alcohol? Never 04/17/2024 Q2: How many drinks containi ng alcohol do you have on a typical day when you are drinking? Patient does not drink Q3: How often do you have si x or more drinks on one occasion? Never 04/17/2024 Comments No Sex and Gender Information Value Date Recorded Sex Assigned at Not on file Legal Sex Female 6:37 AM PARK KEEPER Gender Identity Female 06/09/2024 5:02 AM PARK KEEPER Sexual Orientation Not on file Obstetrics History Para Term AB IAB SAB Ectopic Multiple Livin g Live Births 2 3 Date Outcome GA Total Labor Labor/2nd/3rd Weight Sex Type Anes PTL Radha A1 A5 Name Clin Last Filed Vital Signs Vital Sign Reading Time Taken Comments Blood Pressure 123/78 05/08/2025 1:39 PM PARK KEEPER Pulse 77 05/08/2025 1:39 PM PARK KEEPER Temperature 36.7 C (98.1 F) 05/08/2025 1:39 PM PARK KEEPER Respiratory Rate 18 05/08/2025 1:39 PM PARK KEEPER Oxygen Saturation 100% 05/08/2025 1:39 PM PARK KEEPER Inhaled Oxygen Concentration - - Weight 106.1 kg (234 lb) 05/08/2025 1:39 PM PARK KEEPER Height 172 cm (5' 7.72) 05/08/2025 1:39 PM PARK KEEPER Body Mass Index 35.88 05/08/2025 1:39 PM PARK KEEPER Plan of Treatment Health Maintenance Due Date Last Done Comments Cervical Cancer Screening 1991 Depression Screening 1991 Hepatitis C Screening 1991 Varicella Vaccines (1 of 2 - 13+ 2-dose series) 2004 Regular Well Visit/Exam 18-64 2009 Covid-19 Vaccine (5 - season) 2025 07/14/2023, 06/06/2023, 06/04/2021, Additional history exists Influenza Vaccine (#1) 2025 , 02/20/2024, 03/16/2023, Additional history exists DTaP/Tdap/Td Vaccine (9 - Td or Tdap) 08/29/2033 08/30/2023, 01/27/2020, 03/17/2006, Additional history exists Hepatitis B Screening Completed 08/12/1996 , 03/14/1996, 01/18/1996 HPV Vaccines Completed 01/02/2009, 08/17, 06/02/2008 Pneumococcal vaccine <65 Aged Out No longer eligible based on patient's age to complete this topic Procedures Procedure Name Priority Date/Time Associated Diagnosis Comments US PELVIS W ENDOVAGINAL Schedule Routine, Read Routine (OP Routine) 05/09/2025 3:02 PM PARK KEEPER Excessive and frequent menstruation with regular cycle US BREAST LEFT LIMITED Schedule Routine, Read Routine (OP Routine) 05/08/2025 2:32 PM PARK KEEPER Abnormal finding on breast imaging from Last 3 Months Results * US Pelvis W Endovaginal (05/09/2025 3:02 PM PARK KEEPER) Anatomical Region Laterality Modality Pelvis N/A Ultrasound 05/09/2025 3:24 PM PARK KEEPER Impressions 05/09/2025 3:24 PM PARK KEEPER 1. No evidence of an acute abnormality. 2. Ovaries not optimally assessed, no convincing acute abnormality. 3. Mildly thickened endometrium 1.4 cm. Trace amount of fluid along the endometrial canal. Electronically signed by: Gian Elkins M.D. Narrative 05/09/2025 3:24 PM PARK KEEPER EXAM DESCRIPTION: US PELVIS W ENDOVAGINAL REASON FOR STUDY: N92.0 TECHNIQUE: Ultrasound of the pelvic contents was performed with transabdominal and transvaginal transducer. Grayscale and color doppler techniques were utilized. COMPARISON: None. FINDINGS: UTERUS: The uterus is anteverted. The uterus is slightly heterogeneous in echotexture and measures 10.8 x 6.1 x 5.7 cm. Nabothian cysts are noted. ENDOMETRIUM: The endometrium measures 1.4 cm in thickness. Trace amount of fluid along the endometrial canal. RIGHT OVARY: Only one measurement of the right ovary provided, 2.1 cm. There is documentation of color Doppler flow in the right ovary with arterial and venous waveforms. Ovaries were not optimally demonstrated. LEFT OVARY: The left ovary measures 3.8 x 1.3 x 3.0 cm. Color Doppler flow not well assessed. PELVIC FLUID: Trace amount of free fluid. OTHER: No other significant findings. Procedure Note Gian Elkins MD - 05/09/2025 EXAM DESCRIPTION: US PELVIS W ENDOVAGINAL REASON FOR STUDY: N92.0 TECHNIQUE: Ultrasound of the pelvic contents was performed with transabdominal and transvaginal transducer. Grayscale and color doppler techniques were utilized. COMPARISON: None. FINDINGS: UTERUS: The uterus is anteverted. The uterus is slightly heterogeneous in echotexture and measures 10.8 x 6.1 x 5.7 cm. Nabothian cysts are noted. ENDOMETRIUM: The endometrium measures 1.4 cm in thickness. Trace amount of fluid along the endometrial canal. RIGHT OVARY: Only one measurement of the right ovary provided, 2.1 cm. There is documentation of color Doppler flow in the right ovary with arterial and venous waveforms. Ovaries were not optimally demonstrated. LEFT OVARY: The left ovary measures 3.8 x 1.3 x 3.0 cm. Color Doppler flow not well assessed. PELVIC FLUID: Trace amount of free fluid. OTHER: No other significant findings. IMPRESSION: 1. No evidence of an acute abnormality. 2. Ovaries not optimally assessed, no convincing acute abnormality. 3. Mildly thickened endometrium 1.4 cm. Trace amount of fluid along the endometrial canal. Electronically signed by: Gian Elkins M.D. us Ann Nelson MD IM US PROCEDURES Final Result * US Breast Left Limited (05/08/2025 2:32 PM PARK KEEPER) Anatomical Region Laterality Modality Breast Left Ultrasound 05/08/2025 3:48 PM PARK KEEPER Impressions 05/08/2025 3:54 PM PARK KEEPER Relatively stable oval circumscribed hypoechoic mass in the LEFT breast at 1:00, 6 cm from the nipple since 04/03/2024. Six-month follow up with ultrasound is recommended. OVERALL FINAL ASSESSMENT: BI-RADS Category 3: Probably Benign. RECOMMENDATION: Recommend follow-up diagnostic breast imaging in 6 month with ultrasound for the 1.7 cm LEFT breast mass at 1:00, 6 cm from the nipple. Dr. Melissa Martin discussed the above findings and recommendations with the patient, who expressed her understanding of the management plan. Dictated by: Melissa Martin M.D. The radiology attending physician has personally reviewed this study, and had reviewed and/or edited this written report and agrees with it. Electronically signed by: Danielle Sorensen M.D. Narrative 05/08/2025 3:54 PM PARK KEEPER EXAMINATION: LEFT BREAST ULTRASOUND HISTORY: 35-year-old female who presented for 6 month follow-up of the left breast probably benign mass. COMPARISON: Diagnostic mammogram and left breast ultrasound 10/25/2024, left breast ultrasound 04/17/2024 and outside facility left breast ultrasound 04/03/2024 TECHNIQUE: Directed ultrasound evaluation of the LEFT breast was performed. ULTRASOUND FINDINGS: Ultrasound of the left breast at 1:00, 6 cm from the nipple shows the oval circumscribed hypoechoic mass with internal vascularity, measuring 1.7 x 1.1 x 1.4 cm, previously measured up to 1.6 cm, since 04/03/2024 when it was initially detected. Sharyn Leon GEOGRAPHIC INFORMATION SYSTEMS MANAGER IMG MAMMO PROCEDURES Fi nal Result from Last 3 Months Insurance [facility] [employer] [facility] [employer] Care Teams Wigs Salesperson Relationship Specialty Start Date End Date Rafael Marte MD PCP - General Internal Medicine 07/13/23
--- OUTSIDE RECORDS SUMMARY | 2025-06-16 01:59 | XMS_ITS | Clinical Summary ---
Author Organization [facility] Address [address] [place] [address] Care Team Providers Care Database Analyst Name Role Phone Rafael Marte MD Primary Care Provider [phone] Allergies No known active allergies Medications HYDROcodone-ac etaminophen (NORCO) 5-325 mg tabletIndicati ons:Mass of neck Take 1 Tablet by mouth every 4 hours as needed for Pain, Moderate. Max Daily Amount: 6 Tablets 12 Tablet 2 Active Additional Information Patient not taking.Reported on 05/27/2025 cholecalcifero l 1,250 mcg (50,000 unit) Capsule Take 1 Capsule (50,000 Units) by mouth every 7 days. 12 Capsule 3 2 Active Additional Information Patient not taking.Reported on 05/27/2025 ondansetron (ZOFRAN ODT) 4 mg Tablet, Rapid Dissolve Take 1 Tablet (4 mg) by mouth every 8 hours as needed for Nausea/Emesis. Dissolve tablet on top of tongue, then swallow with saliva. 15 Tablet 1 3 Active Additional Information Patient not taking.Reported on 05/27/2025 omeprazole (PriLOSEC) 20 mg Capsule, Delayed Release(E.C.) Take 1 Capsule (20 mg) by mouth daily. 42 Capsule 4 Active Additional Information Patient not taking.Reported on 05/27/2025 oseltamivir (Tamiflu) 75 mg capsule Take 1 Capsule (75 mg) by mouth 2 times daily. 10 Capsule 5 Active Additional Information Patient not taking.Reported on 05/27/2025 tirzepatide, weight loss, (Zepbound) 7.5 mg/0.5 mL Solution Inject 0.5 mL (7.5 mg) by subcutaneous injection every 7 days. 2 mL 6 5 Active levothyroxine 125 mcg tablet Take 1 Tablet (125 mcg) by mouth daily in the morning. 90 Tablet 2 5 Active escitalopram oxalate (LEXAPRO) 5 mg tablet Take 1 Tablet (5 mg) by mouth daily. 90 Tablet 3 5 Active ALPRAZolam (XANAX) 0.25 mg tabletIndicati ons:Other specified anxiety disorders Take 1 Tablet (0.25 mg) by mouth 2 times daily as needed for Anxiety. 30 Tablet 1 5 Active ondansetron (ZOFRAN ODT) 4 mg Tablet, Rapid Dissolve Take 1 Tablet (4 mg) by mouth every 8 hours as needed for Nausea/Emesis. Dissolve tablet on top of tongue, then swallow with saliva. 15 Tablet 1 5 Active ALPRAZolam (XANAX) 0.25 mg tabletIndicati ons:Other specified anxiety disorders Take 1 Tablet (0.25 mg) by mouth 2 times daily as needed for Anxiety. 5 Tablet 5 025 Discontin ued(Reord er) Active Problems Patient Care Coordination No te Formatting of this note migh t be different from the original. Prev 12/19/24 Problem Noted Date Diagnosed Date Iron deficiency anemia 12/23/2024 History of asthma 01/27/2020 Resolved Problems Problem Noted Date Diagnosed Date Resolved Date Morbid obesity with body mas s index of 40.0-49.9 01/27/2020 09/20/2023 Encounters Date Type Department Care Team Description 06/10/2025 External Device Data STL ABSTRACTION Provider, Abstract 05/27/2025 10:00 AM [facility]DC CONSULTANT Office Visit [place] [address] [place] [address] Rafael Marte MD Other specified hypothyroidism (Primary Dx); Other specified anxiety disorders; Obesity (BMI 30.0-34.9) 05/27/2025 Refill [place] [address] [place] [address] Rafael Marte MD 05/20/2025 External Device Data STL ABSTRACTION Provider, Abstract 04/08/2025 External Device Data STL ABSTRACTION Provider, Abstract from Last 3 Months Immunizations Immunization Administration Dates Next Due (ABRYSVO)(60 YR UP/GA 32-36 WKS) RSV, BIVALENT, PROTEIN SUBUNIT RSVPREF, DILUENT RECONSTITUTED, 0.5 ML, PF 07/04/2023 (ADACEL/BOOSTRIX)(10 YR UP) TDAP VACCINE, 0.5ML, IM 08/30/2023,01/27/2020,03/17/2006 (COMRINATY)(12YR UP) COVID-1 9 VACCINE, MRNA (PF)30 MCG/0.3 ML, IM SYRINGE 07/14/2023 (GARDASIL)(9-45 YRS) HUMAN PAPILLOMAVIRUS VACCINE, TYPES 6, 11, 16, 18, QUADRIVALENT (4VHPV), 3 DOSE, IM 01/02/2009,08/28/2008,06/02/2008 (HAVRIX/VAQTA)(12 MO-18 YRS) HEPATITIS A VACCINE 0.5 ML PED/ADOL 2 DOSE, IM 08/28/2008,03/07/2006 (INFANRIX)(6 WKS-6 YRS) DIPT HERIA, TETANUS TOXOIDS, AND ACCELLULAR PERTUSSIS VACCINE (DTAP), 0.5 ML IM 01/18/1996,01/27/1993,1991,09/17,1991 (IPOL)(6 WKS AND UP) POLIOVI EDGAR VACCINE, INACTIVATED (IPV), 3 DOSE, SUBCUT OR IM 01/18/1996,01/27/1993,1991,09/17,1991 (M-M-R II/PRIORIX)(12 MO UP) MEASLES, MUMPS AND RUBELLA VIRUS VACCINE, 0.5 ML IM/SUBCUT 01/18/1996,08/12/1992 (PFIZER)(12 YR UP) COVID-19 VACCINE - EMERGENCY USE AUTHORIZATION, MRNA, [id number](PF) 30 MCG/0.3 ML IM SUSP 06/04/2021,11/05/2020,10/15/2020 (RECOMBIVAX HB/ENGERIX-B)(0- 19 YRS) HEPATITIS B VACCINE 5 MCG/0.5 ML OR 10 MCG/0.5 ML PED OR ADOL 3 DOSE (PF), IM 08/12/1996,03/14/1996,01/18/1996 HIB, Unspecified Formulation 1991,09/17/18 92,1991 INFLUENZA VACCINE QUADRIVALE NT 6 MOS UP CELL DERIVED IM 03/28/2019 INFLUENZA VACCINE QUADRIVALE NT 6 MOS UP PF IM 03/16/2023,03/24/2022,04/08/2021,03/12 INFLUENZA VACCINE TRIVALENT SPLIT VIRUS, (6 MOS UP), 0.25ML OR 0.5ML, IM 03/19/2025 INFLUENZA VACCINE TRIVALENT SPLIT VIRUS, (6 MOS UP), 0.5ML (PF), IM 02/20/2024 Influenza Seasonal Unspecifi ed Formulation IM 04/30/2019 Influenza Seasonal Unspecifi ed Formulation PF IM 03/21/2024 Family History Medical History Relation Name Comments Asthma Father Placido Hypertension Father Placido Ovarian Cancer Mother Colon Cancer Neg Hx Relation Name Status Comments Father Placido Alive Maternal Grandfather Maternal Grandmother Mother Alive Paternal Grandfather Paternal Grandmother Sister Alive Social History Tobacco Use Types Packs/Day Years Used Date Smoking Tobacco: Never Passive Smoke Exposure: Never Smokeless Tobacco: Never Tobacco Cessation:Counseling Given: No Alcohol Use Standard Drinks/Week Comments Yes 1 (1 standard drink = 0.6 oz pur e alcohol) occasionally Feeling Safe Answer Date Recorded Are you in a relationship wi th someone who hurts you emotionally and/or physically? No 02/18/2025 Comments No Sex and Gender Information Value Date Recorded Sex Assigned at Not on file Legal Sex Female 3:51 PM CDT Gender Identity Not on file Sexual Orientation Not on file Last Filed Vital Signs Vital Sign Reading Time Taken Comments Blood Pressure 112/60 05/27/2025 9:49 AM [facility]DC CONSULTANT Pulse 85 05/27/2025 9:49 AM [facility]DC CONSULTANT Temperature 35.9 C (96.7 F) 02/21/2025 8:19 AM CDT Respiratory Rate 18 02/21/2025 8:19 AM CDT Oxygen Saturation 93% 05/27/2025 9:49 AM [facility]DC CONSULTANT Inhaled Oxygen Concentration - - Weight 103.9 kg (229 lb) 05/27/2025 9:49 AM [facility]DC CONSULTANT Height 172.7 cm (5' 8) 05/27/2025 9:49 AM [facility]DC CONSULTANT Body Mass Index 34.82 05/27/2025 9:49 AM [facility]DC CONSULTANT Plan of Treatment Upcoming Encounters Date Type Department Care Team (Late st Contact Info) Description 09/23/2025 9:40 AM CDT Office Visit [facility] [address] [place] [address] [address] [place] [address] Rafael Marte MD [address] [place] [address] [address] [place] [address] Health Maintenance Due Date Last Done Comments HPV/Cotest (21-29) 2012 CERVICAL CANCER SCREENING 2021 HPV/Cotest (30-65) 2021 PAP SMEAR 2021 COVID-19 Vaccine (5 - 2024-2 6 season) 2025 07/14/2023, 06/04/2021, 11/05/2020, Additional history exists DTAP/TDAP/TD VACCINES (9 - T d or Tdap) 08/29/2033 08/30/2023, 01/27/2020, 03/17/2006, Additional history exists HEPATITIS B VACCINES Completed 08/12/1996, 03/14/1996, 01/18/1996 HPV VACCINES Completed 01/02/2009, 08/17, 06/02/2008 Preventative Visit- Commercial Completed 0 12/19/2024, 09/20/2023, 08/26/2022, Additional history exists INFLUENZA VACCINE Completed 03/19/2025, , 02/20/2024, Additional history exists Procedures Procedure Name Priority Date/Time Associated Diagnosis Comments IRON, TIBC, AND PERCENT SATURATION Routine 04/05/2025 10:22 AM CDT Iron deficiency anemia, unspecified iron deficiency anemia type FERRITIN Routine 04/05/2025 10:22 AM CDT Iron deficiency anemia, unspecified iron deficiency anemia type TSH Routine 04/05/2025 10:21 AM CDT Other specified hypothyroidism T3 FREE Routine 04/05/2025 10:21 AM CDT Other specified hypothyroidism from Last 3 Months Results * IRON, TIBC, AND PERCENT SATURATION (04/05/2025 10:22 AM CDT) IRON 68 40 - 190 mcg/dL [facility] TIBC 300 250 - 450 mcg/dL (calc) [facility] IRON % SATURATION 23 16 - 45 % (calc) [facility] Comment: Test Performed at: [facility] [address] [place] [phone] Estrella Fowler MD Blood 04/05/2025 10:2 2 AM CDT 04/05/2025 10:23 AM CDT us Rafael Marte MD CHEMISTRY ORDERABLES Final Re sult Performing Organization Address [facility]/ZIP Co de Phone Number [facility] [phone] [facility] [address] [place] [address] * FERRITIN (04/05/2025 10:22 AM CDT) FERRITIN 16 16 - 154 ng/mL [facility] Comment: Test Performed at: [facility] [address] [place] [address] Estrella Fowler MD Blood 04/05/2025 10:2 2 AM CDT 04/05/2025 10:23 AM CDT us Rafael Marte MD CHEMISTRY ORDERABLES Final Re sult [facility] [phone] [facility] [address] * T3 FREE (04/05/2025 10:21 AM CDT) T3 FREE 2.8 2.3 - 4.2 pg/mL [facility] Comment: Test Performed at: [address] [address] Estrella Fowler MD Blood 04/05/2025 10:2 1 AM CDT 04/05/2025 10:22 AM CDT us Rafael Marte MD CHEMISTRY ORDERABLES Final Re sult Performing Organization Address [facility]/ZIP Co de Phone Number [facility] [phone] [facility] [employer] [address] * TSH (04/05/2025 10:21 AM CDT) Pathologist [facility] TSH 2.86 mIU/L [facility] Comment: Reference Range > or = 20 Years 0.40-4.50 Ranges First trimester 0.26-2.66 Second trimester 0.55-2.73 Third trimester 0.43-2.91 Test Performed at: [facility] [address] Estrella Fowler MD Blood 04/05/2025 10:2 1 AM CDT 04/05/2025 10:22 AM CDT us Rafael Marte MD CHEMISTRY ORDERABLES Final Re sult [facility] [phone] [facility] [employer] [address] from Last 3 Months Insurance [employer] Advance Directives For more information, please contact: [phone] * Full Code (Latest Code Status on File) Date Activated Date Inactivated Comments 10/18/2023 6:56 AM 10/18/2023 10:39 AM * Full Code Date Activated Date Inactivated Comments 04/11/2022 7:30 AM 04/11/2022 1:57 PM Care Teams Database Analyst Relationship Specialty Start Date End Date Rafael Marte MD PCP - General Internal Medicine 01/15/20
--- OUTSIDE RECORDS SUMMARY | 2025-06-16 01:59 | XMS_ITS | Clinical Summary ---
Author Organization [facility] Address [address] [facility] [place] [address] Care Team Providers Care Heel Wheeler Name Role Phone Lizzie Kinsey MD Primary Care Provider [phone] Source Comments [facility],non-owned Affiliates and Associated Physician Practices is amultiple site organization consisting of ambulatory clinics and hospital sitesin [place], [place], [place] and [place]. This disclosure is being madepursuant to the Care Everywhere program and may not contain all information available regarding this patient. 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 Gender Identity Not on file Sexual Orientation Not on file Last Filed Vital Signs Vital Sign Reading Time Taken Comments Blood Pressure 122/84 05/05/2015 10:26 AM SUPERVISOR SHOP Pulse 75 05/05/2015 10:26 AM SUPERVISOR SHOP Temperature 37.2 C (98.9 F) 05/05/2015 10:26 AM SUPERVISOR SHOP Respiratory Rate - - Oxygen Saturation 98% 05/05/2015 10:26 AM SUPERVISOR SHOP Inhaled Oxygen Concentration - - Weight 118.8 kg (262 lb) 05/05/2015 10:26 AM SUPERVISOR SHOP Height 171.5 cm (5' 7.5) 05/05/2015 10:26 AM CS T Body Mass Index 40.43 05/05/2015 10:26 AM SUPERVISOR SHOP Plan of Treatment Health Maintenance Due Date Last Done Comments HIV SCREENING 2006 HEPATITIS C SCREENING 05/02/2009 DTAP/TDAP/TD VACCINES (1 - Tdap) 2010 HEPATITIS B VACCINE (1 of 3 - 19+ 3-dose series) 2010 PAP SMEAR 2012 HPV VACCINE (1 - 3-dose SCDM series) 2018 DEPRESSION SCREENING 06/19/2024 COVID-19 VACCINE (2024- season) 2025 INFLUENZA VACCINE (#1) 2025 , 02/20/2024, 03/16/2023, Additional history exists ZOSTER VACCINE (1 of 2) 2041 HIB VACCINE Aged Out No longer eligi ble based on patient's age to complete this topic MENINGOCOCCAL (Group B) VACCINE SHARED DECISION-MAKING Aged Out No longer eligible based on patient's age to complete this topic MENINGOCOCCAL GROUPS A/C/Y/W VACCINE Aged Out No longer eligible based on patient's age to complete this topic PNEUMOCOCCAL VACCINE Aged Out No long er eligible based on patient's age to complete this topic Insurance SELF PAY NO INSURANCE Member Subscriber Plan / Payer (Ef fective for All Dates) Name:Vangie Luis Member ID:Not on file Relation to Subscriber:Not on file Name:VANGIE LUIS Subscriber ID:Not on file Address: [address] [place], [place] [id number] Payer ID:Not on file Group ID:Not on file Type:Self Pay Address: [place], [place] [employer] SELF PAY NO INSURANCE Member Subscriber Plan / Payer (Ef fective for All Dates) Name:Vangie Luis Member ID:Not on file Relation to Subscriber:Not on file Name:VANGIE LUIS Subscriber ID:Not on file Address: [address] [place] [address] Payer ID:Not on file Group ID:Not on file Type:Self Pay Address: [place], [place] [employer] SELF PAY NO INSURANCE Member Subscriber Plan / Payer (Ef fective for All Dates) Name:Izabel Luisrey Member ID:Not on file Relation to Subscriber:Not on file Name:IZABEL LUISREY Subscriber ID:Not on file Address: [address] [place] [address] Payer ID:Not on file Group ID:Not on file Type:Self Pay Address: [place], [place] Care Teams Heel Wheeler Relationship Specialty Start Date End Date Lizzie Kinsey MD [address] [facility] [address] [place] [address] PCP - General 10/17/17
--- NOTE | 2025-06-16 05:34 | WPDHPUPDATE1 ---
History and Physical Update Update Date/Time: 06/16/25 05:34 History and Physical has been reviewed, including an updated exam of the patient. There are NO changes in the patient's condition. Risks, benefits, and alternatives have been discussed and questions answered. Patient agrees to proceed with procedure.
--- NOTE | 2025-06-16 05:34 | PM.HPGS ---
History of Present Illness History of Present Illness Consent: Risks, benefits, and alternatives have been discussed and questions answered. Patient agrees to proceed with procedure. Chief complaint: menorrhagia Narrative: Vangie Luis is a 35 year old female with heavy cycles resulting in anemia. Primary has been ordering iron infusions. Pelvic ultrasound was normal. It was recommended to undergo D&C hysteroscopy. Risks of infection, bleeding, perforation, and possible pathology are reviewed. Patient voices understanding and agrees to proceed. Review of Systems Review of Systems: not repeated day of surgery; patient states no changes in status [facility] Past Medical History Medical History (Updated 06/16/25 @ 05:37 by Ann Nelson MD) B12 deficiency Hypothyroid Surgical History Surgical History (Updated 06/16/25 @ 05:36 by Ann Nelson MD) History of bilateral tubal ligation Bilateral salpingectomy with 2nd History of section, low transverse X2 H/O myringoplasty Family History Family History Mother Ovarian cancer S/P KALE (total abdominal hysterectomy) Father Hypertension Social History Social History Smoking status: Never smoker Second hand tobacco smoke exposure: No Alcohol intake: current Substance use: never Lack of Transportation: No Lack of Food: Never True Current Housing: I Have Housing Concerned About Future Housing: No Difficulty Paying Gas/Electric Bills: No Difficulty Paying for Meds: No Currently Unemployed: No Education: Master's Degree or Higher Difficulty w/ Childcare or Family Care: No Living arrangements: with family Spiritual care concerns: No Meds Home Medications and Allergies Home Medications ?Medication ?Instructions ?Recorded ?Confirmed ?Type levothyroxine 125 mcg tablet 125 mcg PO DAILY 07/26/23 06/09/25 History tirzepatide (weight loss) 7.5 7.5 mg subcut WEEKLY 06/09/25 06/09/25 History mg/0.5 mL subcutaneous solution (Zepbound) Allergies Allergy/AdvReac Type Severity Reaction Status Date / Time shellfish derived Allergy Hives Verified 06/09/25 14:25 Exam Const: General: healthy appearing and alert Orientation/consciousness: patient oriented x3 Resp: Effort & Inspection: normal respiratory effort GI: GI Palp: Yes Soft to palpation, No Tenderness to palpation present (GI) and No Palpable mass present : External Female Exam: normal external appearance Speculum Exam - Vagina: normal appearance of the vagina and normal vaginal discharge Speculum Exam - Cervix: normal appearance of the cervix Bimanual exam- vagina & uterus: uterine size normal and consistency normal Bimanual Exam- Adnexa, other: normal adnexae and No adnexal tenderness Neuro: General: patient oriented x3 Assessment and Plan Assessment and plan (1) Menorrhagia: Code(s): N92.0 - Excessive and frequent menstruation with regular cycle Status: Acute Assessment and Plan: Plan to proceed with D&C hysteroscopy
[2025-06-16] MEDS: ACETAMINOPHEN 500 MG TABLET 1000 MG PO (07:45)
--- NOTE | 2025-06-16 08:03 | P.PNAN_ITS ---
Anes - Initial Pre Proc Eval Procedure: Operation Date: 06/16/25 09:00 Proposed Procedures p Hysteroscopy Dilation and Curettage - Ann Nelson MD Date/Time: 06/16/25 08:03 Surgeon: Ann Nelson MD Pre Op Diagnosis: menorrhagia Patient Data Age: 35 Gender: F Height: 1.73 m Weight: 104.5 kg Allergies Allergy/AdvReac Type Severity Reaction Status Date / Time shellfish derived Allergy Hives Verified 06/09/25 14:25 Home Medications ?Medication ?Instructions ?Recorded ?Confirmed ?Type levothyroxine 125 mcg tablet 125 mcg PO DAILY 07/26/23 06/09/25 History tirzepatide (weight loss) 7.5 7.5 mg subcut WEEKLY 06/09/25 History mg/0.5 mL subcutaneous solution (Zepbound) Patient hx anesthesia problems: none Family hx anesthesia problems: none Results Review: All pre-operative results and documents have been reviewed as part of the pre- operative evaluation. COUNTS INCLUDE 234 BEDS AT THE [facility] Past Medical History Medical History B12 deficiency Hypothyroid Surgical History Surgical History History of bilateral tubal ligation Bilateral salpingectomy with 2nd History of section, low transverse X2 H/O myringoplasty Family History Family History Mother Ovarian cancer S/P KALE (total abdominal hysterectomy) Father Hypertension Social History Social History Smoking status: Never smoker Second hand tobacco smoke exposure: No Alcohol intake: current Substance use: never Lack of Transportation: No Lack of Food: Never True Current Housing: I Have Housing Concerned About Future Housing: No Difficulty Paying Gas/Electric Bills: No Difficulty Paying for Meds: No Currently Unemployed: No Education: Master's Degree or Higher Difficulty w/ Childcare or Family Care: No Living arrangements: with family Spiritual care concerns: No Anes - Eval Final PreProcedure Day of Procedure 06/16/25 08:03 Patient weight: obese Heart: regular rate and rhythm Lungs: clear to auscultation Airway: Mallampati scale class II Neurological: alert and oriented Last oral intake: >/= 8 hours ASA classification: II Emergent: no Anesthetic plan: proceed Anesthesia type and monitoring: general GIVS and standard monitoring Results Review: All pre-operative results and documents have been reviewed as part of the pre- operative evaluation. Informed Consent: The patient's anesthetic plan and its attendant risks and benefits were discussed with the patient/family/POA. Questions were solicited and answers provided to the satisfaction of the patient/family/POA.
[2025-06-16 08:17] VITALS: BP 101/64; PULSE 77; RESP 16; TEMP 36.7; O2SAT 99; BMI 35.7
[2025-06-16 08:21] LABS: BEDSIDEPREGUCG Negative (Negative)
--- NOTE | 2025-06-16 09:05 | S_PTH ---
PATIENT: Vangie Luis LOC: [facility] U#:[id number] AGE/SX: 35/F ROOM: RE06/16/[address]: Ann Nelson MD : 1990 BED: DIS: 06/16/2025 SPEC #: [id number] RECD: 06/16/25 10:11 STATUS: GUSTAVO RE #: [id number] DANICA: 06/16/25 09:[address]: Ann Nelson DEPT: [facility] Surgical RECD BY: Keyanna Tam ENTERED: 06/16/25 10:12 SP TYPE: Surgical OTHR DR: Rafael MarteMD Tissues: A - Endometrial Curettings Procedures: Hematoxylin and Eosin Stain Gross and Microscopic Level 4
--- NOTE | 2025-06-16 09:11 | W.PM.PROC2 ---
Procedure Note - Detailed Date of Procedure 06/16/25 Pre-op Diagnosis menorrhagia Post-op Diagnosis Same Procedure Performed D&C hysteroscopy Surgeon Ann Nelson MD Anesthesia MAC Findings The uterus sounds to 10cm and appears grossly normal. Description of Procedure The patient was taken to the operating room and placed under anesthesia in the dorsal lithotomy position. She was prepped and draped in the usual sterile fashion. [place] speculum was placed in the vagina and the cervix grasped on the anterior lip with tenaculum. The uterus is sounded to 10cm. The diagnostic hysteroscope was placed and with the above-stated findings it was removed. The endometrium was curetted with a sharp curette until a good uterine cry was noted in all areas. Instruments are removed. Sponge, needle, and instrument counts are correct per the OR staff. The patient was taken to recovery in stable condition. Estimated Blood Loss 5 Drains No Packing No Pathology Yes (Endometrial curettings) Complications No immediate complications Condition Stable Disposition PACU
[2025-06-16 09:12] VITALS: BP 92/43; PULSE 83; RESP 18; O2SAT 97
[2025-06-16] MEDS: LACTATED RINGERS 1,000 ML 30 ML IV CONT (09:12)
[2025-06-16] MEDS: ONDANSETRON INJ 4 MG/2 ML VIAL IV PUSH (09:21)
[2025-06-16 09:40] VITALS: BP 92/58; PULSE 68; RESP 18; O2SAT 98
[2025-06-16 10:05] VITALS: BP 95/55; PULSE 77; RESP 16
== END 2025-06-16 10:13 | disposition home or self-care (01) ==
PROVIDERS: PCP Internal Medicine; Visit Provider Obstetrics & Gynecology Gynecology
PROC: 0U5B8ZZ Destruction of Endometrium, Via Natural or Artificial Opening Endoscopic (ICD-10-PCS; CPT 58563; principal; 2025-06-16 09:00)
DX: N92.0 Excessive and frequent menstruation with regular cycle (principal); E66.9 Obesity, unspecified; Z68.35 Body mass index [BMI] 35.0-35.9, adult
CPT/HCPCS: 58558; 88305; A9270; J1885; J2003; J2250; J2405; J2704; J3010; J7120